=== PATIENT | female | born 1945 ===

== ENCOUNTER 2016-10-15 18:06 | Emergency (ER) | payer MEDICARE, SELFPAY ==
[2016-10-15 18:06] VITALS: BMI 36.3
[2016-10-15] MEDS ORDERED: Sodium Chloride 0.9% 1,000 ML IV ONE (19:06)
[2016-10-15 19:29] LABS: BASO # 0.1 K/uL (0.0-0.2); BASO % 0.6 % (0.0-2.0); EOS # 0.2 K/uL (0.0-0.7); EOS % 1.8 % (0.0-4.0); HEMATOCRIT 43.2 % (34.0-47.0); MEAN CELL VOLUME 86.9 fL (81.0-99.0); MEAN CORPUSCULAR HEMOGLOBIN 29.3 pg (27.0-31.0); MEAN CORPUSCULAR HGB CONC 33.8 g/dL (33.0-37.0); MEAN PLATELET VOLUME 10.5 fL (7.2-11.7); MONO # 0.8 K/uL (0.0-0.8); MONO % 7.1 % (0.0-10.0); NRBC % 0.1 % (0.0-2.0); RED CELL DISTRIBUTION WIDTH 14.1 % (11.5-14.5); WHITE BLOOD COUNT 11.1 K/uL (4.8-10.8)
[2016-10-15 19:32] LABS: URINE BILIRUBIN NEGATIVE (NEGATIVE); URINE BLOOD NEGATIVE (NEGATIVE); URINE COLOR Straw (YELLOW); URINE GLUCOSE (UA) NORMAL (Normal); URINE KETONE NEGATIVE (NEGATIVE); URINE LEUKOCYTE ESTERASE NEG Leu/uL (Negative); URINE PROTEIN NEGATIVE (NEGATIVE); URINE UROBILINOGEN NORMAL mg/dL (0.2-1.0); WBC URINE < 1 /hpf (0-5)
[2016-10-15] MEDS ORDERED: Sodium Chloride 0.9% 1,000 ML ONE (19:36)
[2016-10-15 19:40] LABS: CHLORIDE 98 mmol/L (98-107)
[2016-10-15 19:41] LABS: POTASSIUM 4.1 mmol/L (3.6-5.2); SODIUM 138 mmol/L (132-148)
[2016-10-15 19:43] LABS: ALB/GLOB RATIO 1.4 (1.0-2.1); ALKALINE PHOSPHATASE 81 U/L (38-126); ALT/SGPT 36 U/L (9-52); AST/SGOT 37 U/L (14-36); BILIRUBIN,TOTAL 0.6 mg/dL (0.2-1.3); BLOOD UREA NITROGEN 17 mg/dL (7-17); CARBON DIOXIDE 26 mmol/L (22-30); GFR AFRICAN-AMERICAN > 60; GLUCOSE,RANDOM 104 mg/dL (65-105); TOTAL PROTEIN 8.9 g/dL (6.3-8.3)
[2016-10-15 19:44] LABS: CALCIUM 9.2 mg/dl (8.6-10.4)
--- NOTE | 2016-10-15 20:36 | CT ---
EXAM: CT Abdomen and Pelvis Without Intravenous Contrast CLINICAL HISTORY: 71 years old, female; Pain; Abdominal pain; Flank; Right; Additional info: Right flank pain. H/o left kidney nephrectomy TECHNIQUE: Axial computed tomography images of the abdomen and pelvis without intravenous contrast. This CT exam was performed using one or more of the following dose reduction techniques: automated exposure control, adjustment of the mA and/or kV according to patient size, and/or use of iterative reconstruction technique. Coronal and sagittal reformatted images were created and reviewed. EXAM DATE/TIME: 10/15/2016 7:17 PM COMPARISON: CT - ABD PELVIS PO IV CONTRAST 09/15/2015 1:40:04 PM FINDINGS: Lower thorax: Heart size is normal. Lung bases are clear ABDOMEN: Liver: There is fatty infiltration of the liver. Gallbladder and bile ducts: unremarkable Pancreas: unremarkable Spleen: unremarkable Adrenals: unremarkable Kidneys and ureters: Right kidney and ureter are unremarkable. There are postsurgical changes left nephrectomy. Stomach and bowel: Stomach is partially distended. Rotation is normal. There is no obstruction. Terminal ileum is unremarkable.Appendix is unremarkable. Colon is incompletely distended which limits evaluation. There is scattered diverticulosis Appendix: See stomach and bowel PELVIS: Bladder: unremarkable Reproductive: Uterus and adnexal structures are unremarkable. ABDOMEN and PELVIS: Intraperitoneal space: There is no free air. There is no significant fluid. Retroperitoneal space: There are multiple surgical clips in the retroperitoneum. Bones/joints: There are degenerative changes in the osseus structures. Soft tissues: There is a fat-containing umbilical hernia. Vasculature: There are vascular calcifications. Lymph nodes: There is no pathologic adenopathy. IMPRESSION: Left nephrectomy; no right renal or ureteral stones or hydronephrosis; the liver; no CT findings of appendicitis or diverticulitis; fatty liver
--- NOTE | 2016-10-15 20:37 | C.PDOC ---
History Of Present Illness 71 year old female presents to the ED with complaints of intermittent and sharp right flank pain that began five days ago. Patient also notes mild left lumbar pain that is described similar to pain in the right flank. She has previously donated left kidney. Patient denies SOB, chest pain, nausea, or vomiting. Chief Complaint (Nursing): Back Pain History Per: Patient History/Exam Limitations: no limitations Onset/Duration Of Symptoms: Days, Intermittent Episodes Current Symptoms Are (Timing): Still Present Quality Of Discomfort: Sharp Previous Symptoms: Back Pain Past Medical History Reviewed: Historical Data, Nursing Documentation, Vital Signs Vital Signs: Last Vital Signs Temp 98.3 F 10/15/16 21:58 Pulse 69 10/15/16 21:58 Resp 18 10/15/16 21:58 BP 122/68 10/15/16 21:58 Pulse Ox 99 10/15/16 21:58 - Medical History PMH: HTN, Osteoporosis, Chronic Kidney Disease (Left Nephrectomy) Surgical History: Endoscopy, Tonsillectomy - [facility] Procedures ENDO RECTUM POLYPECTOMY (08/29/14) ESOPHAGOGASTRODUODENOSCOPY [EGD] W/CLOSED BIOPSY (10/03/14) PHARYNGEAL BIOPSY (06/10/14) Family History: States: Unknown Family Hx - Social History Hx Tobacco Use: No Hx Alcohol Use: No Hx Substance Use: No - Immunization History Hx Tetanus Toxoid Vaccination: Yes Hx Influenza Vaccination: Yes Hx Pneumococcal Vaccination: Yes Review Of Systems Constitutional: Negative for: Fever, Chills Cardiovascular: Negative for: Chest Pain Respiratory: Negative for: Shortness of Breath Gastrointestinal: Negative for: Nausea, Vomiting Genitourinary: Negative for: Dysuria, Hematuria Musculoskeletal: Positive for: Other (right flank pain) Physical Exam - Physical Exam Appears: Non-toxic, No Acute Distress Skin: Warm, Dry Chest: Symmetrical, No Deformity Cardiovascular: Rhythm Regular, No Murmur Respiratory: No Decreased Breath Sounds, No Accessory Muscle Use, No Rales, No Rhonchi, No Stridor, No Wheezing Gastrointestinal/Abdominal: Soft, No Tenderness, No Distention, No Guarding, No Rebound Back: No CVA Tenderness, Other (diffuse lumbar pain ) Extremity: Normal ROM, No Tenderness Neurological/Psych: Oriented x3 ED Course And Treatment - Laboratory Results Result Diagrams: 10/15/16 19:26 10/15/16 19:26 O2 Sat by Pulse Oximetry: 95 - CT Scan/US Abdomen/PELVIS WO Other Rad Studies (CT/US): Read By Radiologist, Radiology Report Reviewed CT/US Interpretation: IMPRESSION: Left nephrectomy; no right renal or ureteral stones or hydronephrosis; the liver; no CT. findings of appendicitis or diverticulitis; fatty liver Disposition - Disposition Referrals: [facility] Chirag Solorio, [Non-Staff] - Disposition: HOME/ ROUTINE Disposition Time: 20:40 Condition: GOOD Additional Instructions: Thank you for letting us take care of you today. Your provider was Dr. Pickering. You were treated for back pain. The emergency medical care you received today was directed at your acute symptoms. If you were prescribed any medication, please fill it and take as directed. It may take several days for your symptoms to resolve. Return to the Emergency Department if your symptoms worsen, do not improve, or if you have any other problems. Please contact your doctor or call one of the physicians/clinics you have been referred to that are listed on the Patient Visit Information form that is included in your discharge packet. Bring any paperwork you were given at discharge with you along with any medications you are taking to your follow up visit. Our treatment cannot replace ongoing medical care by a primary care provider (PCP) outside of the emergency department. Thank you for allowing the [facility] team to be part of your care today. Follow up with your doctor in 3-4 days to be re-evaluated. Prescriptions: Cyclobenzaprine [Cyclobenzaprine HCl] 10 mg PO Q8 PRN #20 tab PRN Reason: Muscle Spasm Instructions: Acute Low Back Pain (ED) - Clinical Impression Clinical Impression: acute low back pain - Scribe Statement Adrienne Villalba All medical record entries made by the Scribe were at my direction and personally dictated by me. I have reviewed the chart and agree that the record accurately reflects my personal performance of the history, physical exam, medical decision making, and the department course for this patient. I have also personally directed, reviewed, and agree with the discharge instructions and disposition.
[2016-10-15 22:02] VITALS: BP 122/68; PULSE 69; RESP 18; TEMP 98.3
[2016-10-15 23:25] VITALS: O2SAT 95
== END 2016-10-15 20:50 | disposition home or self-care (01) ==
LOC: C.ER 18:06
DX: M54.5 Low back pain (principal)
CPT/HCPCS: 36415; 74176; 80053; 81001; 83690; 85025; 87086; 99284; J7040

== ENCOUNTER 2016-11-17 18:09 | Observation (INO) | payer MEDICARE ==
[2016-11-17 18:09] VITALS: BMI 36.3
--- NOTE | 2016-11-17 19:25 | C.PDOC ---
History Of Present Illness Patient presents to the ER with a complaint of palpitations that have been worsening since yesterday. Patient states it feels like her heart is pounding. Patient is speaking in complete sentences and denies fever, chills, nausea, or vomiting. Time Seen by Provider: 11/17/16 19:25 Chief Complaint (Nursing): Palpitations History Per: Patient History/Exam Limitations: no limitations Onset/Duration Of Symptoms: Days (Since yesterday) Current Symptoms Are (Timing): Still Present Associated Symptoms: Other (No associated symptoms) Quality Of Symptoms: Rapid Heart Rate Severity: None Pain Scale Rating Of: 0 Exacerbating Factor(s): Pos: None Recent travel outside of the [place]: No Additional History Per: Patient Past Medical History Reviewed: Historical Data, Nursing Documentation, Vital Signs Vital Signs: Last Vital Signs Temp 98.3 F 11/17/16 18:41 Pulse 98 H 11/17/16 20:14 Resp 18 11/17/16 20:14 BP 125/86 11/17/16 20:14 Pulse Ox 99 11/17/16 22:22 - Medical History PMH: HTN, Osteoporosis, Chronic Kidney Disease (SEE COMMENT) Surgical History: Endoscopy, Tonsillectomy - [facility] Procedures ENDO RECTUM POLYPECTOMY (08/29/14) ESOPHAGOGASTRODUODENOSCOPY [EGD] W/CLOSED BIOPSY (10/03/14) PHARYNGEAL BIOPSY (06/10/14) Family History: States: No Known Family Hx - Social History Hx Tobacco Use: No Hx Alcohol Use: No Hx Substance Use: No - Immunization History Hx Tetanus Toxoid Vaccination: Yes Hx Influenza Vaccination: Yes (02/2016) Hx Pneumococcal Vaccination: Yes Review Of Systems Constitutional: Negative for: Fever, Chills ENT: Negative for: Throat Pain Cardiovascular: Positive for: Palpitations Respiratory: Positive for: Other (Speaking in complete sentences). Negative for : Shortness of Breath Gastrointestinal: Negative for: Nausea, Vomiting Genitourinary: Negative for: Dysuria Musculoskeletal: Negative for: Back Pain Skin: Negative for: Rash, Lesions, Jaundice, Bruising Neurological: Negative for: Weakness Psych: Negative for: Anxiety Physical Exam - Physical Exam Appears: Well, Non-toxic Skin: Warm, Dry Head: Normacephalic Eye(s): bilateral: Normal Inspection Oral Mucosa: Moist Neck: Supple Chest: Symmetrical, No Tenderness Cardiovascular: Rhythm Regular (Tachycardic) Respiratory: No Rales, No Rhonchi, No Wheezing Gastrointestinal/Abdominal: Soft, No Tenderness Back: No CVA Tenderness Extremity: Normal ROM Extremity: Bilateral: Atraumatic, Normal Color And Temperature Neurological/Psych: Oriented x3, Normal Speech, Normal Cognition Gait: Steady ED Course And Treatment - Laboratory Results Result Diagrams: 11/17/16 19:40 11/17/16 19:40 ECG: Interpreted By Me ECG Rhythm: Sinus Tachycardia (130), Nonspecific Changes (lvh) O2 Sat by Pulse Oximetry: 99 Pulse Ox Interpretation: Normal - Radiology CXR: Interpreted by Me, Viewed By Me - CT Scan/US CTA w/ IV contrast Other Rad Studies (CT/US): Read By Radiologist, Radiology Report Reviewed CT/US Interpretation: IMPRESSION: 1. No CT evidence of pulmonary embolism. 2. Incidental/non-acute findings are described above. Progress Note: EKG, blood work, urinalysis and CXR ordered. Disposition Discussed With DrMelonie: Izaiah Davis Comment: accepted the pt on his service and took over the care at 9:34 PM Doctor Will See Patient In The: Hospital Counseled Patient/Family Regarding: Studies Performed, Diagnosis - Disposition Disposition: HOSPITALIZED Disposition Time: 19:25 Condition: FAIR - POA Present On Arrival: Poor Glycemic Control - Clinical Impression Clinical Impression: Palpitations, SVT (supraventricular tachycardia) - Scribe Statement The provider has reviewed the documentation as recorded by the Scribe Sanjiv Sood All medical record entries made by the Scribe were at my direction and personally dictated by me. I have reviewed the chart and agree that the record accurately reflects my personal performance of the history, physical exam, medical decision making, and the department course for this patient. I have also personally directed, reviewed, and agree with the discharge instructions and disposition. Decision To Admit - Pt Status Changed To: Hospital Disposition Of: Observation - . Bed Request Type: Telemetry Patient Diagnosis: Palpitations, SVT (supraventricular tachycardia)
[2016-11-17] MEDS ORDERED: Enoxaparin 40 mg Syringe SC STA (19:36)
[2016-11-17 19:44] LABS: BASO % 0.4 % (0.0-2.0); EOS # 0.2 K/uL (0.0-0.7); EOS % 1.4 % (0.0-4.0); HEMATOCRIT 44.8 % (34.0-47.0); LYMPH # 3.4 K/uL (1.0-4.3); LYMPH % 26.5 % (20.0-40.0); MEAN CELL VOLUME 85.8 fL (81.0-99.0); MEAN CORPUSCULAR HEMOGLOBIN 29.4 pg (27.0-31.0); MEAN CORPUSCULAR HGB CONC 34.2 g/dL (33.0-37.0); MEAN PLATELET VOLUME 9.7 fL (7.2-11.7); MONO # 0.9 K/uL (0.0-0.8); MONO % 6.7 % (0.0-10.0); RED CELL DISTRIBUTION WIDTH 13.6 % (11.5-14.5); WHITE BLOOD COUNT 12.8 K/uL (4.8-10.8)
[2016-11-17 19:47] LABS: RBC URINE < 1 /hpf (0-3); URINE BILIRUBIN NEGATIVE (NEGATIVE); URINE BLOOD NEGATIVE (NEGATIVE); URINE COLOR Yellow (YELLOW); URINE GLUCOSE (UA) NORMAL (Normal); URINE KETONE NEGATIVE (NEGATIVE); URINE LEUKOCYTE ESTERASE TRACE Leu/uL (Negative); URINE PROTEIN NEGATIVE (NEGATIVE); URINE UROBILINOGEN NORMAL mg/dL (0.2-1.0)
[2016-11-17 19:48] LABS: URINE BACTERIA OCC (<OCC); WBC URINE 4 /hpf (0-5)
[2016-11-17 19:52] LABS: CHLORIDE 89 mmol/L (98-107); INR 1.1; PARTIAL THROMBOPLASTIN TIME 38 SECONDS (21-34); POTASSIUM 3.7 mmol/L (3.6-5.2); SODIUM 134 mmol/L (132-148)
[2016-11-17 19:54] LABS: AST/SGOT 41 U/L (14-36); BILIRUBIN,TOTAL 0.7 mg/dL (0.2-1.3); CARBON DIOXIDE 30 mmol/L (22-30); GFR AFRICAN-AMERICAN > 60
[2016-11-17 19:55] LABS: ALB/GLOB RATIO 1.2 (1.0-2.1); ALKALINE PHOSPHATASE 85 U/L (38-126); ALT/SGPT 39 U/L (9-52); BLOOD UREA NITROGEN 13 mg/dL (7-17); CALCIUM 9.4 mg/dl (8.6-10.4); GLUCOSE,RANDOM 213 mg/dL (65-105); TOTAL PROTEIN 8.5 g/dL (6.3-8.3)
[2016-11-17] MEDS ORDERED: Enoxaparin 40 mg Syringe ONE (20:10)
[2016-11-17 20:26] LABS: THYROID STIMULATING HORMONE 1.95 mIU/L (0.46-4.68)
[2016-11-17] MEDS ORDERED: Iodixanol 320 mg/ml 150 ml Bottle IV ONE (21:45)
--- NOTE | 2016-11-17 22:19 | CT ---
EXAM: CT Angiography Chest With Intravenous Contrast CLINICAL HISTORY: 71 years old, female; Condition or disease; Cardiac pacemaker adjustment and management and lung condition and disease; Other: R/O clot; Additional info: Tachy, dyspnea TECHNIQUE: Axial computed tomographic angiography images of the chest with intravenous contrast using pulmonary embolism protocol. This CT exam was performed using one or more of the following dose reduction techniques: automated exposure control, adjustment of the mA and/or kV according to patient size, and/or use of iterative reconstruction technique. MIP reconstructed images were created and reviewed. Coronal and sagittal reformatted images were created and reviewed. CONTRAST: 100 mL of visipaque 320 administered intravenously. COMPARISON: CR - CHEST ONE VIEW 08/08/2015 7:53:42 PM FINDINGS: Pulmonary arteries: No pulmonary embolism. Aorta: Minimal atherosclerotic disease. No aneurysm. Lungs: No consolidation. Pleural space: No significant effusion. No pneumothorax. Heart: No cardiomegaly. No significant pericardial effusion. Bones/joints: Mild degenerative changes of spine. No acute fracture. Soft tissues: Unremarkable. Lymph nodes: No pathologically enlarged lymph nodes. Liver: Fatty infiltration. IMPRESSION: 1. No CT evidence of pulmonary embolism. 2. Incidental/non-acute findings are described above.
--- NOTE | 2016-11-18 02:25 | CP.PCM.HP ---
<Jaime Doty - Last Filed: 11/18/16 07:47> History of Present Illness - History of Present Illness History of Present Illness: CC: "Fast heart beat and chest pain" 71 F with PMH of HTN presents to [facility] ED for chest pain and tachycardia. Patient stated it began same day in the morning while she was at home. She was not doing anything in particular when onset occurred. Patient stated that she never experienced these symptoms before. Patient was seeing Dr. Isaac as outpatient for about past month but is looking for a new physician. She previosuly saw Dr. Martin but her office was too far for patient. Patient had stress test and ECHO done in 10/23 and stated both were normal. Patient rated pain as 10/10 in severity. She described the pain as constant, sharp, and cramping. She stated that pain is reproducible. She reports a "lump" under her left breast. She denies any alleviating factors while palpation exacerbates her pain. Admits to palpitations but denies fever/chills, syncope, dizziness/lightheadedness, trauma, sob, abd pain, n/v/d, constipation, incontinence. PMD: Dr. Isaac PMH: HTN Meds: HCTZ 25 mg PO daily, Ambien 5 mg PO HS Allergy: ASA PSH: denies Hosp: denies FH: DM, CAD, HTN Social: denies tobacco/etoh/illicit drug use Present on Admission - Present on Admission Any Indicators Present on Admission: No History of DVT/PE: No History of Uncontrolled Diabetes: No Urinary Catheter: No Decubitus Ulcer Present: No Review of Systems - Constitutional Constitutional: absent: Chills, Fever - EENT Eyes: absent: Blurred Vision, Change in Vision, Loss of Peripheral Vision Ears: absent: Decreased Hearing, Ear Discharge, Disequilibrium Nose/Mouth/Throat: absent: Mouth Pain - Breasts Breasts: absent: Change in Shape, Mass, Pain - Cardiovascular Cardiovascular: Chest Pain, Palpitations. absent: Chest Pain at Rest, Chest Pain with Activity, Diaphoresis, Dyspnea, Dyspnea on Exertion - Respiratory Respiratory: absent: Cough, Dyspnea, Hemoptysis, Dyspnea on Exertion - Gastrointestinal Gastrointestinal: absent: Abdominal Pain, Constipation, Diarrhea, Fecal Incontinence, Nausea, Vomiting - Genitourinary Genitourinary: absent: Change in Urinary Stream, Difficulty Urinating, Dysuria, Hematuria, Urinary Incontinence - Musculoskeletal Musculoskeletal: Arthralgias, Muscle Cramps, Myalgias. absent: Back Pain - Integumentary Integumentary: absent: Bleeding Lesions, Changing Lesions, Lesions, New Lesions , Rash - Neurological Neurological: absent: Confusion, Dizziness, Numbness, Focal Weakness, Headaches , Paresthesias, Syncope, Tingling, Tremor, Vertigo, Weakness - Psychiatric Psychiatric: absent: Anxiety, Depression, Homicidal Ideation, Panic Attacks, Suicidal Ideation - Endocrine Endocrine: absent: Fatigue, Palpitations, Polydipsia, Polyphagia, Polyuria - Hematologic/Lymphatic Hematologic: absent: Easy Bleeding, Easy Bruising, Lymphadenopathy Past Patient History - Past Medical History & Family History Past Medical History?: Yes - Past Social History Smoking Status: Former Smoker - CARDIAC Hx Hypertension: Yes - PULMONARY Hx Respiratory Disorders: No - NEUROLOGICAL Hx Neurological Disorder: No - HEENT Hx HEENT Problems: Yes (SEE COMMENT) Other/Comment: hx of pharyngitis; TONSILLECTOMY. HX: PRYIFORM SINUS LESION. difficulty swallowing - RENAL Hx Chronic Kidney Disease: Yes (SEE COMMENT) - ENDOCRINE/METABOLIC Hx Endocrine Disorders: No Other/Comment: Pre diabetic doesnt take medications - HEMATOLOGICAL/ONCOLOGICAL Hx Blood Disorders: No - INTEGUMENTARY Hx Dermatological Problems: No - MUSCULOSKELETAL/RHEUMATOLOGICAL Hx Osteoporosis: Yes - GASTROINTESTINAL Hx Gastrointestinal Disorders: Yes Hx Gastroesophageal Reflux: Yes - GENITOURINARY/GYNECOLOGICAL Hx Genitourinary Disorders: No - PSYCHIATRIC Hx Substance Use: No - SURGICAL HISTORY Hx Tonsillectomy: Yes - ANESTHESIA Hx Anesthesia: Yes Hx Anesthesia Reactions: No Hx Malignant Hyperthermia: No Meds Allergies/Adverse Reactions: Allergies Allergy/AdvReac Type Severity Reaction Status Date / Time aspirin Allergy Intermediate SWELLING Verified 11/17/16 18:59 Physical Exam - Constitutional Appears: No Acute Distress - Head Exam Head Exam: ATRAUMATIC, NORMOCEPHALIC - Eye Exam Eye Exam: EOMI, Normal appearance Pupil Exam: PERRL - ENT Exam ENT Exam: Mucous Membranes Moist - Neck Exam Neck exam: Positive for: Normal Inspection - Respiratory Exam Respiratory Exam: Chest Wall Tenderness, Clear to Auscultation Bilateral, NORMAL BREATHING PATTERN Additional comments: Muscle spasm over anterior chest wall near ribs 5-6, TTP - Cardiovascular Exam Cardiovascular Exam: Tachycardia, Irregular Rhythm, +S1, +S2 - GI/Abdominal Exam GI & Abdominal Exam: Normal Bowel Sounds, Soft. absent: Tenderness - Rectal Exam Rectal Exam: Deferred - Extremities Exam Extremities exam: Positive for: normal capillary refill, pedal pulses present. Negative for: calf tenderness, pedal edema - Back Exam Back exam: absent: CVA tenderness (L), CVA tenderness (R) - Neurological Exam Neurological exam: Alert, CN II-XII Intact, Oriented x3 - Psychiatric Exam Psychiatric exam: Normal Affect, Normal Mood - Skin Skin Exam: Dry, Intact, Normal Color, Warm Results - Vital Signs Recent Vital Signs: Last Vital Signs Temp 98 F 11/18/16 00:40 Pulse 92 H 11/18/16 02:18 Resp 20 11/18/16 02:18 BP 114/71 11/18/16 00:40 Pulse Ox 96 11/18/16 02:18 - Labs Result Diagrams: 11/18/16 04:30 11/18/16 04:30 Assessment & Plan - Assessment and Plan (Free Text) Plan: 1. Tachycardia Telemetry Cardio consult, Dr. Morillo, help appreciated ECHO (11/01): normal EF with some diastolic dysfunction, borderline Pulm HTN CT chest: no evidence of PE, incidental findings noted (see full report) CXR EKG and POPEYE x 3 HA1C, TSH/T4, Lipid panel HHD 2. Chest wall tenderness likely secondary to muscle spasm Flexeril 5 mg PO BID Percoet 5/325 1 tab Q4H PRN 3. HTN HCTZ 25 mg PO daily 4. Insomnia Ambien 5 mg PO HS PRN 5. Prophylactic Measures Lovenox 40 mg SC daily Protonix 40 mg PO daily <Floyd Duffy - Last Filed: 11/18/16 19:12> Results - Vital Signs Recent Vital Signs: Last Vital Signs Temp 97.7 F 11/18/16 16:00 Pulse 79 11/18/16 16:00 Resp 17 11/18/16 16:00 BP 139/82 11/18/16 16:00 Pulse Ox 96 11/18/16 16:00 - Labs Result Diagrams: 11/18/16 04:30 11/18/16 04:30 Labs: Laboratory Results - last 24 hr 11/18/16 11/18/16 11/18/16 04:30 04:30 04:30 WBC 12.9 H RBC 5.18 Hgb 15.3 Hct 44.2 MCV 85.3 MCH 29.5 MCHC 34.6 RDW 13.8 Plt Count 259 MPV 9.9 Neut % (Auto) 56.1 Lymph % (Auto) 35.0 Garrett % (Auto) 6.9 Eos % (Auto) 1.5 Baso % (Auto) 0.5 Neut # 7.2 H Lymph # 4.5 H Garrett # 0.9 H Eos # 0.2 Baso # 0.1 PT INR APTT Sodium Potassium Chloride Carbon Dioxide Anion Gap BUN Creatinine Est GFR ( Amer) Est GFR (Non-Af Amer) POC Glucose (mg/dL) Random Glucose Hemoglobin A1c 6.0 Calcium Magnesium Total Bilirubin AST ALT Alkaline Phosphatase Total Creatine Kinase 64 CK-MB (Mass) 0.54 Troponin I, Quant < 0.0120 Total Protein Albumin Globulin Albumin/Globulin Ratio Triglycerides 163 H D Cholesterol 197 LDL Cholesterol Direct 111 HDL Cholesterol 58 Thyroxine (T4) 8.51 TSH 3rd Generation 4.06 11/18/16 11/18/16 11/18/16 04:30 04:30 07:29 WBC RBC Hgb Hct MCV MCH MCHC RDW Plt Count MPV Neut % (Auto) Lymph % (Auto) Garrett % (Auto) Eos % (Auto) Baso % (Auto) Neut # Lymph # Garrett # Eos # Baso # PT 13.0 H INR 1.2 APTT 50 H D Sodium 133 Potassium 3.2 L Chloride 93 L Carbon Dioxide 28 Anion Gap 15 BUN 12 Creatinine 0.9 Est GFR ( Amer) > 60 Est GFR (Non-Af Amer) > 60 POC Glucose (mg/dL) 136 H Random Glucose 125 H Hemoglobin A1c Calcium 9.2 Magnesium Total Bilirubin 0.6 AST 36 ALT 46 Alkaline Phosphatase 97 Total Creatine Kinase CK-MB (Mass) Troponin I, Quant Total Protein 8.5 H Albumin 5.2 H Globulin 3.3 Albumin/Globulin Ratio 1.6 Triglycerides Cholesterol LDL Cholesterol Direct HDL Cholesterol Thyroxine (T4) TSH 3rd Generation 11/18/16 11/18/16 11/18/16 08:11 12:24 16:55 WBC RBC Hgb Hct MCV MCH MCHC RDW Plt Count MPV Neut % (Auto) Lymph % (Auto) Garrett % (Auto) Eos % (Auto) Baso % (Auto) Neut # Lymph # Garrett # Eos # Baso # PT INR APTT Sodium Potassium Chloride Carbon Dioxide Anion Gap BUN Creatinine Est GFR ( Amer) Est GFR (Non-Af Amer) POC Glucose (mg/dL) 100 140 H Random Glucose Hemoglobin A1c Calcium Magnesium 1.8 Total Bilirubin AST ALT Alkaline Phosphatase Total Creatine Kinase 54 CK-MB (Mass) 0.45 Troponin I, Quant < 0.0120 Total Protein Albumin Globulin Albumin/Globulin Ratio Triglycerides Cholesterol LDL Cholesterol Direct HDL Cholesterol Thyroxine (T4) TSH 3rd Generation Assessment & Plan - Date & Time Date: 11/18/16 (I have seen and examined the patient. I agree with the findings and plan of care as documented by Dr. Doty. Patient with tachycardia. Now with chest pain. ROMIx3 with EKG. Aspirin and Statin. Received Cardizem in ED. Rate improved. Cardio consult. Monitor for acute changes.) Time: 19:12 Attending/Attestation - Attestation I have personally seen and examined this patient.: Yes I have fully participated in the care of the patient.: Yes I have reviewed all pertinent clinical information: Yes
[2016-11-18] MEDS ORDERED: Oxycodone/Acetaminophen 5/325 mg Tab PO PRN (02:27)
[2016-11-18] MEDS ORDERED: Sodium Chloride 0.9% 1,000 ML IV SCH (02:45)
[2016-11-18] MEDS: Sodium Chloride 0.9% 1,000 ML IV SCH ×2 (03:30→17:53)
[2016-11-18 04:38] LABS: BASO # 0.1 K/uL (0.0-0.2); BASO % 0.5 % (0.0-2.0); EOS # 0.2 K/uL (0.0-0.7); EOS % 1.5 % (0.0-4.0); HEMATOCRIT 44.2 % (34.0-47.0); LYMPH # 4.5 K/uL (1.0-4.3); MEAN CELL VOLUME 85.3 fL (81.0-99.0); MEAN CORPUSCULAR HEMOGLOBIN 29.5 pg (27.0-31.0); MEAN CORPUSCULAR HGB CONC 34.6 g/dL (33.0-37.0); MEAN PLATELET VOLUME 9.9 fL (7.2-11.7); MONO # 0.9 K/uL (0.0-0.8); MONO % 6.9 % (0.0-10.0); NRBC % 0.1 % (0.0-2.0); RED CELL DISTRIBUTION WIDTH 13.8 % (11.5-14.5); WHITE BLOOD COUNT 12.9 K/uL (4.8-10.8)
[2016-11-18 04:47] LABS: CHLORIDE 93 mmol/L (98-107)
[2016-11-18 04:48] LABS: SODIUM 133 mmol/L (132-148)
[2016-11-18 04:49] LABS: POTASSIUM 3.2 mmol/L (3.6-5.2)
[2016-11-18 04:50] LABS: CHOLESTEROL 197 mg/dL (0-199)
[2016-11-18 04:51] LABS: ALKALINE PHOSPHATASE 97 U/L (38-126); ALT/SGPT 46 U/L (9-52); AST/SGOT 36 U/L (14-36); BILIRUBIN,TOTAL 0.6 mg/dL (0.2-1.3); BLOOD UREA NITROGEN 12 mg/dL (7-17); CARBON DIOXIDE 28 mmol/L (22-30); GFR AFRICAN-AMERICAN > 60; GLUCOSE,RANDOM 125 mg/dL (65-105); TOTAL PROTEIN 8.5 g/dL (6.3-8.3)
[2016-11-18 04:52] LABS: CALCIUM 9.2 mg/dl (8.6-10.4)
[2016-11-18 04:55] LABS: ALB/GLOB RATIO 1.6 (1.0-2.1)
[2016-11-18 04:56] LABS: INR 1.2
[2016-11-18 05:09] LABS: T4 8.51 ug/dL (5.5-11.0)
[2016-11-18 05:23] LABS: THYROID STIMULATING HORMONE 4.06 mIU/L (0.46-4.68)
--- NOTE | 2016-11-18 07:33 | RAD ---
PROCEDURE: CHEST RADIOGRAPH, 1 VIEW HISTORY: chest pain COMPARISON: Comparison is made to 08/08/2015 FINDINGS: LUNGS: Clear. PLEURA: No pneumothorax or pleural fluid seen. CARDIOVASCULAR: Normal. OSSEOUS STRUCTURES: No significant abnormalities. VISUALIZED UPPER ABDOMEN: Normal. OTHER FINDINGS: None. IMPRESSION: No active disease.
[2016-11-18] MEDS ORDERED: Potassium Chloride 20 mEq ER Tab PO ONE ×2 (07:48→12:00)
[2016-11-18 08:28] LABS: MAGNESIUM 1.8 mg/dL (1.6-2.3)
[2016-11-18] MEDS ORDERED: Enoxaparin 40 mg Syringe SC SCH (10:00)
[2016-11-18] MEDS ORDERED: Pantoprazole 40 mg EC Tab PO SCH (10:00)
--- NOTE | 2016-11-18 10:00 | CP.PCM.CON ---
<Coty Wright - Last Filed: 11/18/16 11:21> History of Present Illness - History of Present Illness History of Present Illness: Cardiac Consultation Note Dr. Dias Reason: Tachycardia HPI: This is 71 year old female with a PMHx of HTN, donation of 1 kidney, GERD being seen for cardiac evaluation of sinus tachycardia. Patient came to the ED last night, 11/17/16, on her own after experiencing heart palpitations, which began Monday night. Patient states that the palpitations have been constant since, and that nothing makes it better or worse. This is the first time this has happened. Patient saw her primary doctor, Dr. Davis, last on Monday11/15/16 , and states "everything was fine". Patient states that she had a nuclear stress test done on 12/01/16, and results came back normal. Admits to LUQ pain that seems to radiate to sternum when patient is asked to point. However, pain has not occurred since stress test was done. Patient admits to recent SOB while walking up hills. She is able to lay flat at night, and walk many blocks at a time. She is not able to specify how many flights of stairs she can climb, because she states she only uses the elevator. Patient denies any current fevers , chills, chest pain, SOB, numbness or tingling, changes in vision, diaphoresis , weakness, headaches. PMHx: HTN,donation of 1 kidney, GERD. Questionable history of DM as per chart, however, patient denies. FHx: Father from CAD, and mother of dementia. Both siblings, brother and sister, have HTN Allergies: Dust and pollen, patient experiences lacrimation when exposed Surgeries: Left nephrectomy to donate to son in 2004, tonsillectomy in 2016, and b/l axillary lumpectomy Social: Patient is a who lives at home by herself, retired warehouse attendant, and denies any use of drugs, tobacco, and alcohol. Troponins: <0.0120 X 3. EKG done this AM (11/18/16) shows NSR 84 bpm. EKG done overnight (11/18/16) shows NSR 86 bpm. EKG on admission (11/17/16) showed sinus tachycardia 130 bpm, LVH and possible atrial enlargement. EKG shows possible atrial tachycardia. ECHO (11/01/16) showed EF 65-70%. Diastolic dysfunction. Moderate calcification on aortic valve (doubt vegetation). Mild TR, borderline pulm HTN. Nuclear Stress Test (11/01/16) was normal. Review of Systems - Constitutional Constitutional: absent: Chills, Fever - EENT Eyes: absent: Blurred Vision, Change in Vision Ears: absent: Dizziness - Cardiovascular Cardiovascular: Palpitations. absent: Chest Pain, Dyspnea - Respiratory Respiratory: absent: Cough, Dyspnea - Gastrointestinal Gastrointestinal: absent: Abdominal Pain, Constipation, Diarrhea, Nausea, Vomiting - Genitourinary Genitourinary: absent: Change in Urinary Stream, Difficulty Urinating, Dysuria - Musculoskeletal Musculoskeletal: absent: Numbness, Tingling - Integumentary Integumentary: absent: Wounds - Neurological Neurological: absent: Dizziness, Numbness, Tingling, Weakness - Psychiatric Psychiatric: absent: Anxiety, Depression - Endocrine Endocrine: Palpitations. absent: Fatigue Past Patient History - Past Medical History & Family History Past Medical History?: Yes - Past Social History Smoking Status: Former Smoker - CARDIAC Hx Hypertension: Yes - PULMONARY Hx Respiratory Disorders: No - NEUROLOGICAL Hx Neurological Disorder: No - HEENT Hx HEENT Problems: Yes (SEE COMMENT) Other/Comment: hx of pharyngitis; TONSILLECTOMY. HX: PRYIFORM SINUS LESION. difficulty swallowing - RENAL Hx Chronic Kidney Disease: Yes (SEE COMMENT) - ENDOCRINE/METABOLIC Hx Endocrine Disorders: No Other/Comment: Pre diabetic doesnt take medications - HEMATOLOGICAL/ONCOLOGICAL Hx Blood Disorders: No - INTEGUMENTARY Hx Dermatological Problems: No - MUSCULOSKELETAL/RHEUMATOLOGICAL Hx Osteoporosis: Yes - GASTROINTESTINAL Hx Gastrointestinal Disorders: Yes Hx Gastroesophageal Reflux: Yes - GENITOURINARY/GYNECOLOGICAL Hx Genitourinary Disorders: No - PSYCHIATRIC Hx Substance Use: No - SURGICAL HISTORY Hx Tonsillectomy: Yes - ANESTHESIA Hx Anesthesia: Yes Hx Anesthesia Reactions: No Hx Malignant Hyperthermia: No Meds Home Medications: Home Medication List Medication Instructions Recorded Confirmed Type Cyclobenzaprine [Flexeril] 5 mg PO BID tab 11/19/16 Rx Lisinopril [Zestril] 2.5 mg PO DAILY #30 tab 11/19/16 Rx diltiaZEM CD [Cardizem CD] 240 mg PO DAILY #30 c24 11/19/16 Rx Allergies/Adverse Reactions: Allergies Allergy/AdvReac Type Severity Reaction Status Date / Time aspirin Allergy Intermediate SWELLING Verified 11/20/16 00:41 - Medications Medications: Current Medications Cyclobenzaprine HCl (Flexeril) 5 mg PO BID [facility] Last Admin: 11/18/16 09:48 Dose: Not Given Enoxaparin Sodium (Lovenox) 40 mg SC DAILY [facility] Last Admin: 11/18/16 09:44 Dose: 40 mg Hydrochlorothiazide (Hydrodiuril) 25 mg PO DAILY [facility] Last Admin: 11/18/16 09:44 Dose: 25 mg Sodium Chloride (Sodium Chloride 0.9%) 1,000 mls @ 70 mls/hr IV .[id number] [facility] Last Admin: 11/18/16 03:30 Dose: 70 mls/hr Ondansetron HCl (Zofran Inj) 4 mg IVP Q6 PRN PRN Reason: Nausea/Vomiting Oxycodone/Acetaminophen (Percocet 5/325 Mg Tab) 1 tab PO Q4H PRN PRN Reason: Pain, severe (8-10) Stop: 11/21/16 02:28 Pantoprazole Sodium (Protonix Ec Tab) 40 mg PO DAILY [facility] Last Admin: 11/18/16 09:44 Dose: 40 mg Potassium Chloride (K-Dur 20 Meq Er Tab) 40 meq PO ONCE ONE Stop: 11/18/16 12:01 Zolpidem Tartrate (Ambien) 5 mg PO HS PRN PRN Reason: Insomnia Physical Exam - Constitutional Appears: No Acute Distress - Head Exam Head Exam: NORMAL INSPECTION, NORMOCEPHALIC - Eye Exam Eye Exam: EOMI, Normal appearance Pupil Exam: NORMAL ACCOMODATION - ENT Exam ENT Exam: Mucous Membranes Moist - Neck Exam Neck exam: Positive for: Full Rom - Respiratory Exam Respiratory Exam: Clear to Auscultation Bilateral, NORMAL BREATHING PATTERN - Cardiovascular Exam Cardiovascular Exam: REGULAR RHYTHM, +S1, +S2 - GI/Abdominal Exam GI & Abdominal Exam: Normal Bowel Sounds, Soft. absent: Tenderness - Extremities Exam Extremities exam: Positive for: normal inspection, pedal edema. Negative for: tenderness - Back Exam Back exam: NORMAL INSPECTION - Neurological Exam Neurological exam: Alert, Oriented x3 - Psychiatric Exam Psychiatric exam: Normal Affect, Normal Mood - Skin Skin Exam: Dry, Normal Color, Warm Results - Vital Signs Recent Vital Signs: Last Vital Signs Temp 98 F 11/18/16 08:00 Pulse 81 11/18/16 08:00 Resp 18 11/18/16 08:00 BP 134/80 11/18/16 08:00 Pulse Ox 96 11/18/16 08:00 - Labs Result Diagrams: 11/18/16 04:30 11/18/16 04:30 Labs: Laboratory Results - last 24 hr 11/18/16 11/18/16 11/18/16 04:30 04:30 04:30 WBC 12.9 H RBC 5.18 Hgb 15.3 Hct 44.2 MCV 85.3 MCH 29.5 MCHC 34.6 RDW 13.8 Plt Count 259 MPV 9.9 Neut % (Auto) 56.1 Lymph % (Auto) 35.0 Scurry % (Auto) 6.9 Eos % (Auto) 1.5 Baso % (Auto) 0.5 Neut # 7.2 H Lymph # 4.5 H Scurry # 0.9 H Eos # 0.2 Baso # 0.1 PT INR APTT Sodium Potassium Chloride Carbon Dioxide Anion Gap BUN Creatinine Est GFR ( Amer) Est GFR (Non-Af Amer) POC Glucose (mg/dL) Random Glucose Hemoglobin A1c 6.0 Calcium Magnesium Total Bilirubin AST ALT Alkaline Phosphatase Total Creatine Kinase 64 CK-MB (Mass) 0.54 Troponin I, Quant < 0.0120 Total Protein Albumin Globulin Albumin/Globulin Ratio Triglycerides 163 H D Cholesterol 197 LDL Cholesterol Direct 111 HDL Cholesterol 58 Thyroxine (T4) 8.51 TSH 3rd Generation 4.06 11/18/16 11/18/16 11/18/16 04:30 04:30 07:29 WBC RBC Hgb Hct MCV MCH MCHC RDW Plt Count MPV Neut % (Auto) Lymph % (Auto) Scurry % (Auto) Eos % (Auto) Baso % (Auto) Neut # Lymph # Scurry # Eos # Baso # PT 13.0 H INR 1.2 APTT 50 H D Sodium 133 Potassium 3.2 L Chloride 93 L Carbon Dioxide 28 Anion Gap 15 BUN 12 Creatinine 0.9 Est GFR ( Amer) > 60 Est GFR (Non-Af Amer) > 60 POC Glucose (mg/dL) 136 H Random Glucose 125 H Hemoglobin A1c Calcium 9.2 Magnesium Total Bilirubin 0.6 AST 36 ALT 46 Alkaline Phosphatase 97 Total Creatine Kinase CK-MB (Mass) Troponin I, Quant Total Protein 8.5 H Albumin 5.2 H Globulin 3.3 Albumin/Globulin Ratio 1.6 Triglycerides Cholesterol LDL Cholesterol Direct HDL Cholesterol Thyroxine (T4) TSH 3rd Generation 11/18/16 08:11 WBC RBC Hgb Hct MCV MCH MCHC RDW Plt Count MPV Neut % (Auto) Lymph % (Auto) Scurry % (Auto) Eos % (Auto) Baso % (Auto) Neut # Lymph # Scurry # Eos # Baso # PT INR APTT Sodium Potassium Chloride Carbon Dioxide Anion Gap BUN Creatinine Est GFR ( Amer) Est GFR (Non-Af Amer) POC Glucose (mg/dL) Random Glucose Hemoglobin A1c Calcium Magnesium 1.8 Total Bilirubin AST ALT Alkaline Phosphatase Total Creatine Kinase 54 CK-MB (Mass) 0.45 Troponin I, Quant < 0.0120 Total Protein Albumin Globulin Albumin/Globulin Ratio Triglycerides Cholesterol LDL Cholesterol Direct HDL Cholesterol Thyroxine (T4) TSH 3rd Generation Assessment & Plan (1) Tachycardia Assessment and Plan: Patient with atrial tachycardia. SVT vs A.fibrillation. Patient's HR this Am in upper 90's. As per patient history, she does not tolerate beta blockers. Will start Cardizem 30 mg PO Q8H. Continue home medication HCTZ 25mg PO daily Potassium 3.2 this AM. Replace as needed. Thyroid panel WNL. Troponins: <0.0120 X 3. EKG done this AM (11/18/16) shows NSR 84 bpm. EKG done overnight (11/18/16) shows NSR 86 bpm. EKG on admission (11/17/16) showed sinus tachycardia 130 bpm, LVH and possible atrial enlargement. EKG shows possible atrial tachycardia. ECHO (11/01/16) showed EF 65-70%. Diastolic dysfunction. Moderate calcification on aortic valve (doubt vegetation). Mild TR, borderline pulm HTN. Nuclear Stress Test (11/01/16) was normal. Status: Acute (2) Hx of chest pain Assessment and Plan: Resolved since stress test in October. Troponins: <0.0120 X 3. EKG done this AM (11/18/16) shows NSR 84 bpm. EKG done overnight (11/18/16) shows NSR 86 bpm. EKG on admission (11/17/16) showed sinus tachycardia 130 bpm, LVH and possible atrial enlargement. EKG shows possible atrial tachycardia. ECHO (11/01/16) showed EF 65-70%. Diastolic dysfunction. Moderate calcification on aortic valve (doubt vegetation). Mild TR, borderline pulm HTN. Nuclear Stress Test (11/01/16) was normal. Status: Resolved (3) HTN (hypertension) Assessment and Plan: HCTZ 25 mg PO daily Monitor BP. Status: Acute - Assessment and Plan (Free Text) Assessment: Discussed with Dr. Dias. Seen with Brittany Wright DO- PGY 2 <Kelsey Dias A - Last Filed: 11/23/16 12:33> Meds - Medications Medications: Current Medications Cyclobenzaprine HCl (Flexeril) 5 mg PO BID [facility] Last Admin: 11/18/16 17:02 Dose: 5 mg Diltiazem HCl (Cardizem Cd) 240 mg PO DAILY [facility] Enoxaparin Sodium (Lovenox) 40 mg SC DAILY [facility] Last Admin: 11/18/16 09:44 Dose: 40 mg Hydrochlorothiazide (Hydrodiuril) 25 mg PO DAILY [facility] Last Admin: 11/18/16 09:44 Dose: 25 mg Lisinopril (Zestril) 2.5 mg PO DAILY [facility] Oxycodone/Acetaminophen (Percocet 5/325 Mg Tab) 1 tab PO Q4H PRN PRN Reason: Pain, severe (8-10) Stop: 11/21/16 02:28 Pantoprazole Sodium (Protonix Ec Tab) 40 mg PO DAILY [facility] Last Admin: 11/18/16 09:44 Dose: 40 mg Zolpidem Tartrate (Ambien) 5 mg PO HS PRN PRN Reason: Insomnia Last Admin: 11/19/16 03:13 Dose: 5 mg Results - Vital Signs Recent Vital Signs: Last Vital Signs Temp 97.5 F L 11/19/16 00:00 Pulse 68 11/19/16 07:00 Resp 17 11/19/16 07:00 BP 122/76 11/19/16 07:00 Pulse Ox 100 11/19/16 07:00 - Labs Result Diagrams: 11/19/16 06:31 11/19/16 06:31 Labs: Laboratory Results - last 24 hr 11/18/16 11/18/16 11/18/16 04:30 08:11 12:24 WBC RBC Hgb Hct MCV MCH MCHC RDW Plt Count MPV Neut % (Auto) Lymph % (Auto) Scurry % (Auto) Eos % (Auto) Baso % (Auto) Neut # Lymph # Scurry # Eos # Baso # PT INR APTT Sodium Potassium Chloride Carbon Dioxide Anion Gap BUN Creatinine Est GFR ( Amer) Est GFR (Non-Af Amer) POC Glucose (mg/dL) 100 Random Glucose Hemoglobin A1c 6.0 Calcium Phosphorus Magnesium 1.8 Total Bilirubin AST ALT Alkaline Phosphatase Total Creatine Kinase 54 CK-MB (Mass) 0.45 Troponin I, Quant < 0.0120 Total Protein Albumin Globulin Albumin/Globulin Ratio 11/18/16 11/18/16 11/19/16 16:55 21:29 06:31 WBC 11.2 H RBC 4.86 Hgb 14.2 Hct 42.4 MCV 87.2 MCH 29.3 MCHC 33.6 RDW 13.7 Plt Count 222 MPV 9.6 Neut % (Auto) 55.6 Lymph % (Auto) 34.6 Scurry % (Auto) 7.4 Eos % (Auto) 1.8 Baso % (Auto) 0.6 Neut # 6.2 Lymph # 3.9 Scurry # 0.8 Eos # 0.2 Baso # 0.1 PT INR APTT Sodium Potassium Chloride Carbon Dioxide Anion Gap BUN Creatinine Est GFR ( Amer) Est GFR (Non-Af Amer) POC Glucose (mg/dL) 140 H 141 H Random Glucose Hemoglobin A1c Calcium Phosphorus Magnesium Total Bilirubin AST ALT Alkaline Phosphatase Total Creatine Kinase CK-MB (Mass) Troponin I, Quant Total Protein Albumin Globulin Albumin/Globulin Ratio 11/19/16 11/19/16 11/19/16 06:31 06:31 06:31 WBC RBC Hgb Hct MCV MCH MCHC RDW Plt Count MPV Neut % (Auto) Lymph % (Auto) Scurry % (Auto) Eos % (Auto) Baso % (Auto) Neut # Lymph # Scurry # Eos # Baso # PT 12.1 INR 1.1 APTT 39 H D Sodium 136 Potassium 4.4 Chloride 99 Carbon Dioxide 26 Anion Gap 15 BUN 12 Creatinine 0.9 Est GFR ( Amer) > 60 Est GFR (Non-Af Amer) > 60 POC Glucose (mg/dL) Random Glucose 118 H Hemoglobin A1c Calcium 8.4 L Phosphorus 3.2 Magnesium 1.9 Total Bilirubin 0.4 AST 35 ALT 41 Alkaline Phosphatase 81 Total Creatine Kinase CK-MB (Mass) Troponin I, Quant Total Protein 7.6 Albumin 4.2 Globulin 3.4 Albumin/Globulin Ratio 1.2 Attending/Attestation - Attestation I have personally seen and examined this patient.: Yes I have fully participated in the care of the patient.: Yes I have reviewed all pertinent clinical information: Yes Notes (Text): 11/23/16 12:33 Pt with atrial tachycardia will start Cardizem
--- NOTE | 2016-11-18 18:47 | CP.PCM.PN ---
<JoeshaiRadames hin - Last Filed: 11/18/16 18:48> Subjective - Date & Time of Evaluation Date of Evaluation: 11/18/16 Time of Evaluation: 09:01 - Subjective Subjective: Pt seen and examined. Pt reports that she is feeling well. She reports that she experienced a rapid heart rate last night. She denies any current fever, chills , chest pain, shortness of breath, nausea, and vomiting. Objective - Vital Signs/Intake and Output Vital Signs (last 24 hours): Temp Pulse Resp BP Pulse Ox 97.7 F 79 17 139/82 96 11/18/16 16:00 11/18/16 16:00 11/18/16 16:00 11/18/16 16:00 11/18/16 16:00 Intake and Output: 11/18/16 11/18/16 06:59 18:59 Intake Total 1230 Output Total 1000 Balance 230 - Medications Medications: Current Medications Cyclobenzaprine HCl (Flexeril) 5 mg PO BID [facility] Last Admin: 11/18/16 17:02 Dose: 5 mg Enoxaparin Sodium (Lovenox) 40 mg SC DAILY [facility] Last Admin: 11/18/16 09:44 Dose: 40 mg Hydrochlorothiazide (Hydrodiuril) 25 mg PO DAILY [facility] Last Admin: 11/18/16 09:44 Dose: 25 mg Sodium Chloride (Sodium Chloride 0.9%) 1,000 mls @ 70 mls/hr IV .[id number] [facility] Last Admin: 11/18/16 17:53 Dose: 70 mls/hr Ondansetron HCl (Zofran Inj) 4 mg IVP Q6 PRN PRN Reason: Nausea/Vomiting Oxycodone/Acetaminophen (Percocet 5/325 Mg Tab) 1 tab PO Q4H PRN PRN Reason: Pain, severe (8-10) Stop: 11/21/16 02:28 Pantoprazole Sodium (Protonix Ec Tab) 40 mg PO DAILY [facility] Last Admin: 11/18/16 09:44 Dose: 40 mg Zolpidem Tartrate (Ambien) 5 mg PO HS PRN PRN Reason: Insomnia - Labs Labs: 11/18/16 04:30 11/18/16 04:30 PT 13.0 SECONDS (9.7-12.2) H 11/18/16 04:30 INR 1.2 11/18/16 04:30 APTT 50 SECONDS (21-34) H D 11/18/16 04:30 - Constitutional Appears: No Acute Distress - Head Exam Head Exam: ATRAUMATIC, NORMOCEPHALIC - Eye Exam Eye Exam: EOMI, PERRL - ENT Exam ENT Exam: Mucous Membranes Moist. absent: Mucous Membranes Dry - Respiratory Exam Respiratory Exam: Clear to Ausculation Bilateral. absent: Rales, Rhonchi, Wheezes - Cardiovascular Exam Cardiovascular Exam: +S1, +S2. absent: Gallop, Rubs - GI/Abdominal Exam GI & Abdominal Exam: Soft. absent: Distended, Rigid, Tenderness - Extremities Exam Extremities Exam: Full ROM. absent: Pedal Edema - Neurological Exam Neurological Exam: Alert, Awake, Oriented x3 - Psychiatric Exam Psychiatric exam: Normal Affect, Normal Mood - Skin Skin Exam: Normal Color, Warm Assessment and Plan - Assessment and Plan (Free Text) Assessment: Tachyarrythmia: Initial EKG - sinus tahcycardia, LVH, LAE (please see full report) Cardiology, Dr. Dias, consulted. Help appreciated. Repeat EKG - sinus tachycardia Troponins negative x 3 Follow up am EKG Echocardiogram (11/01): normal EF with some diastolic dysfunction, borderline pulmonary HTN (please see full report) CT chest - no evidence of PE, incidental findings noted ( pleasesee full report) CXR - no active disease TSH, Free T4 within normal limits Cardizem 30 mg po q8h as per cardiology HTN: HCTZ 25 mg PO daily Prophylactic Measures: DVT: SCDs, Lovenox 40 mg sc daily GI: Protonix 40 mg PO daily NS IVF 70 cc/hr Ambien prn for insomnia <Jodie Conley V - Last Filed: 11/19/16 07:38> Objective - Vital Signs/Intake and Output Vital Signs (last 24 hours): Temp Pulse Resp BP Pulse Ox 97.5 F L 68 17 122/76 100 11/19/16 00:00 11/19/16 07:00 11/19/16 07:00 11/19/16 07:00 11/19/16 07:00 Intake and Output: 11/19/16 11/19/16 06:59 18:59 Intake Total 1690 Balance 1690 - Medications Medications: Current Medications Cyclobenzaprine HCl (Flexeril) 5 mg PO BID [facility] Last Admin: 11/18/16 17:02 Dose: 5 mg Diltiazem HCl (Cardizem) 30 mg PO Q8H [facility] Last Admin: 11/19/16 02:15 Dose: 30 mg Enoxaparin Sodium (Lovenox) 40 mg SC DAILY [facility] Last Admin: 11/18/16 09:44 Dose: 40 mg Hydrochlorothiazide (Hydrodiuril) 25 mg PO DAILY [facility] Last Admin: 11/18/16 09:44 Dose: 25 mg Sodium Chloride (Sodium Chloride 0.9%) 1,000 mls @ 70 mls/hr IV .[id number] [facility] Last Admin: 11/18/16 17:53 Dose: 70 mls/hr Oxycodone/Acetaminophen (Percocet 5/325 Mg Tab) 1 tab PO Q4H PRN PRN Reason: Pain, severe (8-10) Stop: 11/21/16 02:28 Pantoprazole Sodium (Protonix Ec Tab) 40 mg PO DAILY [facility] Last Admin: 11/18/16 09:44 Dose: 40 mg Zolpidem Tartrate (Ambien) 5 mg PO HS PRN PRN Reason: Insomnia Last Admin: 11/19/16 03:13 Dose: 5 mg - Labs Labs: 11/19/16 06:31 11/19/16 06:31 PT 12.1 SECONDS (9.7-12.2) 11/19/16 06:31 INR 1.1 11/19/16 06:31 APTT 39 SECONDS (21-34) H D 11/19/16 06:31 Attending/Attestation - Attestation I have personally seen and examined this patient.: Yes I have fully participated in the care of the patient.: Yes I have reviewed all pertinent clinical information, including history, physical exam and plan: Yes Notes (Text): This is a late computer entry for 11/18/16. Patient seen, examined, and case discussed with day-time resident. Patient seen with cardiology rounds. Patient has tachycardia requiring beta carol or cardizem. Given prior history of dizziness with beta-carol, patient started on Cardizem 30mg PO Q 8 hours in the evening, if patient feels better in the morning will likely be converted to long acting cardizem. During rounds, patient denies headache, denies chest pain, denies nausea/denies vomitting/denies abdominal pain/denies BRBPR/Denies constipation/Denies diarrhea. Assessment/Plan 1) Tachyarrythmia: * Initial EKG - sinus tahcycardia, LVH, LAE (please see full report) * Cardiology, Dr. Dias, consulted. Help appreciated. (Covering for Dr. Morillo )-->Patient does not want to see her PMD/inspector finishing: Dr. Davis * Repeat EKG - sinus tachycardia * Troponins negative x 3 * Follow up am EKG * Echocardiogram (11/01): normal EF with some diastolic dysfunction, borderline pulmonary HTN (please see full report) * CT chest - no evidence of PE, incidental findings noted ( pleasesee full report) * CXR - no active disease * TSH, Free T4 within normal limits * Cardizem 30 mg po q8h as per cardiology in the evening * Echo (11/07/16): left ventricle systolic function is normal, Ejfection fraction is 65-70%, diastolic dysfunction. Aortic valve is mildly to moderately calcified below the RCC. Doubt vegetation. No aortic regurgitation. No AR/No MR , trace to mild tricupsid regurgitation, borderline pulmonary hypertension, no pulmonic valvular regurgitation * Stress test (11/09/16): no scan of evidence of reversible ischemia noted. Left ventricle systolic function is normal. EF>70% * Allergic to Aspirin * D-dimer: negative 2) History of HTN * HCTZ 25 mg PO daily in the morning 3) Diabetes * controlled * Hgba1c: 6.0 4) Elevated triglycerides * T, Cholestrol: 197, LDL: 111, HDL: 58 * Will need diet and lifestyle modifications 5) Prophylactic Measures: * DVT PPx: SCDs b/l Lovenox 40 mg sc daily * GI ppx: Protonix 40 mg PO daily * NS IVF 70 cc/hr * Ambien prn for insomnia
[2016-11-19 06:33] VITALS: TEMP 97.5
[2016-11-19 06:39] LABS: BASO # 0.1 K/uL (0.0-0.2); BASO % 0.6 % (0.0-2.0); EOS # 0.2 K/uL (0.0-0.7); EOS % 1.8 % (0.0-4.0); HEMATOCRIT 42.4 % (34.0-47.0); LYMPH # 3.9 K/uL (1.0-4.3); LYMPH % 34.6 % (20.0-40.0); MEAN CELL VOLUME 87.2 fL (81.0-99.0); MEAN CORPUSCULAR HEMOGLOBIN 29.3 pg (27.0-31.0); MEAN CORPUSCULAR HGB CONC 33.6 g/dL (33.0-37.0); MEAN PLATELET VOLUME 9.6 fL (7.2-11.7); MONO # 0.8 K/uL (0.0-0.8); MONO % 7.4 % (0.0-10.0); NRBC % 0.2 % (0.0-2.0); RED CELL DISTRIBUTION WIDTH 13.7 % (11.5-14.5); WHITE BLOOD COUNT 11.2 K/uL (4.8-10.8)
[2016-11-19 06:43] LABS: INR 1.1
[2016-11-19 07:10] VITALS: RESP 17
[2016-11-19 07:11] VITALS: BP 122/76; PULSE 68; O2SAT 100
[2016-11-19 07:12] LABS: CHLORIDE 99 mmol/L (98-107); POTASSIUM 4.4 mmol/L (3.6-5.2); SODIUM 136 mmol/L (132-148)
[2016-11-19 07:14] LABS: BILIRUBIN,TOTAL 0.4 mg/dL (0.2-1.3); GFR AFRICAN-AMERICAN > 60
[2016-11-19 07:15] LABS: ALB/GLOB RATIO 1.2 (1.0-2.1); ALKALINE PHOSPHATASE 81 U/L (38-126); ALT/SGPT 41 U/L (9-52); AST/SGOT 35 U/L (14-36); BLOOD UREA NITROGEN 12 mg/dL (7-17); CARBON DIOXIDE 26 mmol/L (22-30); GLUCOSE,RANDOM 118 mg/dL (65-105); TOTAL PROTEIN 7.6 g/dL (6.3-8.3)
[2016-11-19 07:16] LABS: CALCIUM 8.4 mg/dl (8.6-10.4); MAGNESIUM 1.9 mg/dL (1.6-2.3); PHOSPHOROUS 3.2 mg/dL (2.5-4.5)
--- NOTE | 2016-11-19 08:04 | CP.PCM.PN ---
Subjective - Date & Time of Evaluation Date of Evaluation: 11/19/16 Time of Evaluation: 07:40 - Subjective Subjective: Pt much improved for discharge tolerating PO Objective - Vital Signs/Intake and Output Vital Signs (last 24 hours): Temp Pulse Resp BP Pulse Ox 97.5 F L 68 17 122/76 100 11/19/16 00:00 11/19/16 07:00 11/19/16 07:00 11/19/16 07:00 11/19/16 07:00 Intake and Output: 11/19/16 11/19/16 06:59 18:59 Intake Total 1690 Balance 1690 - Medications Medications: Current Medications Cyclobenzaprine HCl (Flexeril) 5 mg PO BID [facility] Last Admin: 11/18/16 17:02 Dose: 5 mg Diltiazem HCl (Cardizem Cd) 240 mg PO DAILY [facility] Enoxaparin Sodium (Lovenox) 40 mg SC DAILY [facility] Last Admin: 11/18/16 09:44 Dose: 40 mg Hydrochlorothiazide (Hydrodiuril) 25 mg PO DAILY [facility] Last Admin: 11/18/16 09:44 Dose: 25 mg Lisinopril (Zestril) 2.5 mg PO DAILY [facility] Oxycodone/Acetaminophen (Percocet 5/325 Mg Tab) 1 tab PO Q4H PRN PRN Reason: Pain, severe (8-10) Stop: 11/21/16 02:28 Pantoprazole Sodium (Protonix Ec Tab) 40 mg PO DAILY [facility] Last Admin: 11/18/16 09:44 Dose: 40 mg Zolpidem Tartrate (Ambien) 5 mg PO HS PRN PRN Reason: Insomnia Last Admin: 11/19/16 03:13 Dose: 5 mg - Labs Labs: 11/19/16 06:31 11/19/16 06:31 PT 12.1 SECONDS (9.7-12.2) 11/19/16 06:31 INR 1.1 11/19/16 06:31 APTT 39 SECONDS (21-34) H D 11/19/16 06:31 - Constitutional Appears: Well - Head Exam Head Exam: ATRAUMATIC - Eye Exam Eye Exam: Normal appearance - ENT Exam ENT Exam: Mucous Membranes Moist - Respiratory Exam Respiratory Exam: NORMAL BREATHING PATTERN - Cardiovascular Exam Cardiovascular Exam: REGULAR RHYTHM - GI/Abdominal Exam GI & Abdominal Exam: Normal Bowel Sounds - Exam External exam: NORMAL EXTERNAL EXAM - Extremities Exam Extremities Exam: Normal Inspection - Neurological Exam Neurological Exam: Alert, Awake - Psychiatric Exam Psychiatric exam: Normal Affect, Normal Mood - Skin Skin Exam: Dry Assessment and Plan (1) Palpitations Assessment & Plan: Continue rate control for atrial tachycardia stable for d/c follow up in office Status: Acute (2) SVT (supraventricular tachycardia) Status: Acute
--- NOTE | 2016-11-19 08:04 | CP.PCM.DIS ---
Provider - Provider Date of Admission: 11/18/16 00:31 Attending physician: Jodie Conley DO Time Spent in preparation of Discharge (in minutes): 31 Diagnosis - Discharge Diagnosis (1) Palpitations Status: Chronic Comment: Controlled and resolved. Start Cardizem CD 240mg PO Tab PO daily. Patient does not want to follow-up with her prior value analysis coordinator/PMD. Discussed with cardiology, Dr Kinsey regarding recommendedation. Patient advised to follow-up within one week of discharge with cardiology. (2) Elevated cholesterol with elevated triglycerides Status: Chronic Comment: Patient recommended for diet and life style modifications. Patient will need statin, to be determine upon follow-up with PCP or value analysis coordinator given patient is starting new medications. (3) Tachycardia Status: Chronic Comment: Controlled and resolved. Start Cardizem CD 240mg PO Tab PO daily. Patient does not want to follow-up with her prior value analysis coordinator/PMD. Discussed with cardiology, Dr Kinsey regarding recommendedation. Patient advised to follow-up within one week of discharge with cardiology. (4) Diabetes Status: Chronic Comment: Controlled. Hgba1c: 6.0. Low dose emma inhibitor as prophylactic renoprotection (5) HTN (hypertension) Status: Chronic Comment: Start Cardizem CD 240mg PO 1 tab PO daily; discussed with cardiology in agreement. Start Lisinopril 2.5mg PO daily as renoprotection in light of diabetes history. Continue HCTZ 25mg 1 tab PO daily. Low salt diet (6) Prophylactic measure Status: Acute Comment: GI px: Protonix 40mg PO daily. DVT px: lovenox 40mg subq daily. Patient is allergic to aspirin. Hospital Course - Lab Results Lab Results: Most Recent Lab Values WBC 11.2 K/uL (4.8-10.8) H 11/19/16 06:31 RBC 4.86 Mil/uL (3.80-5.20) 11/19/16 06:31 Hgb 14.2 g/dL (11.0-16.0) 11/19/16 06:31 Hct 42.4 % (34.0-47.0) 11/19/16 06:31 MCV 87.2 fL (81.0-99.0) 11/19/16 06:31 MCH 29.3 pg (27.0-31.0) 11/19/16 06:31 MCHC 33.6 g/dL (33.0-37.0) 11/19/16 06:31 RDW 13.7 % (11.5-14.5) 11/19/16 06:31 Plt Count 222 K/uL (130-400) 11/19/16 06:31 MPV 9.6 fL (7.2-11.7) 11/19/16 06:31 Neut % (Auto) 55.6 % (50.0-75.0) 11/19/16 06:31 Lymph % (Auto) 34.6 % (20.0-40.0) 11/19/16 06:31 Isabela % (Auto) 7.4 % (0.0-10.0) 11/19/16 06:31 Eos % (Auto) 1.8 % (0.0-4.0) 11/19/16 06:31 Baso % (Auto) 0.6 % (0.0-2.0) 11/19/16 06:31 Neut # 6.2 K/uL (1.8-7.0) 11/19/16 06:31 Lymph # 3.9 K/uL (1.0-4.3) 11/19/16 06:31 Isabela # 0.8 K/uL (0.0-0.8) 11/19/16 06:31 Eos # 0.2 K/uL (0.0-0.7) 11/19/16 06:31 Baso # 0.1 K/uL (0.0-0.2) 11/19/16 06:31 PT 12.1 SECONDS (9.7-12.2) 11/19/16 06:31 INR 1.1 11/19/16 06:31 APTT 39 SECONDS (21-34) H D 11/19/16 06:31 D-Dimer, Quantitative < 200 ng/mlDDU (0-243) 11/17/16 19:40 Sodium 136 mmol/L (132-148) 11/19/16 06:31 Potassium 4.4 mmol/L (3.6-5.2) 11/19/16 06:31 Chloride 99 mmol/L (98-107) 11/19/16 06:31 Carbon Dioxide 26 mmol/L (22-30) 11/19/16 06:31 Anion Gap 15 (10-20) 11/19/16 06:31 BUN 12 mg/dL (7-17) 11/19/16 06:31 Creatinine 0.9 MG/DL (0.7-1.2) 11/19/16 06:31 Est GFR ( Amer) > 60 11/19/16 06:31 Est GFR (Non-Af Amer) > 60 11/19/16 06:31 POC Glucose (mg/dL) 141 mg/dL (65-110) H 11/18/16 21:29 Random Glucose 118 mg/dL (65-105) H 11/19/16 06:31 Hemoglobin A1c 6.0 % (4.2-6.5) 11/18/16 04:30 Calcium 8.4 mg/dl (8.6-10.4) L 11/19/16 06:31 Phosphorus 3.2 mg/dL (2.5-4.5) 11/19/16 06:31 Magnesium 1.9 mg/dL (1.6-2.3) 11/19/16 06:31 Total Bilirubin 0.4 mg/dL (0.2-1.3) 11/19/16 06:31 AST 35 U/L (14-36) 11/19/16 06:31 ALT 41 U/L (9-52) 11/19/16 06:31 Alkaline Phosphatase 81 U/L (38-126) 11/19/16 06:31 Total Creatine Kinase 54 U/L (30-135) 11/18/16 08:11 CK-MB (Mass) 0.45 ng/mL (0.0-3.38) 11/18/16 08:11 Troponin I < 0.0120 ng/mL (0.00-0.120) 11/17/16 19:40 Troponin I, Quant < 0.0120 ng/mL (0.00-0.120) 11/18/16 08:11 NT-Pro-B Natriuret Pep 28.8 pg/mL (0-900) 11/17/16 19:40 Total Protein 7.6 g/dL (6.3-8.3) 11/19/16 06:31 Albumin 4.2 g/dL (3.5-5.0) 11/19/16 06:31 Globulin 3.4 gm/dL (2.2-3.9) 11/19/16 06:31 Albumin/Globulin Ratio 1.2 (1.0-2.1) 11/19/16 06:31 Triglycerides 163 mg/dL (0-149) H D 11/18/16 04:30 Cholesterol 197 mg/dL (0-199) 11/18/16 04:30 LDL Cholesterol Direct 111 mg/dL (0-129) 11/18/16 04:30 HDL Cholesterol 58 mg/dL (30-70) 11/18/16 04:30 Thyroxine (T4) 8.51 ug/dL (5.5-11.0) 11/18/16 04:30 TSH 3rd Generation 4.06 mIU/L (0.46-4.68) 11/18/16 04:30 Urine Color Yellow (YELLOW) 11/17/16 19:40 Urine Clarity Clear (Clear) 11/17/16 19:40 Urine pH 7.0 (5.0-8.0) 11/17/16 19:40 Ur Specific [place] 1.006 (1.003-1.030) 11/17/16 19:40 Urine Protein Negative mg/dL (NEGATIVE) 11/17/16 19:40 Urine Glucose (UA) Normal mg/dL (Normal) 11/17/16 19:40 Urine Ketones Negative mg/dL (NEGATIVE) 11/17/16 19:40 Urine Blood Negative (NEGATIVE) 11/17/16 19:40 Urine Nitrate Negative (NEGATIVE) 11/17/16 19:40 Urine Bilirubin Negative (NEGATIVE) 11/17/16 19:40 Urine Urobilinogen Normal mg/dL (0.2-1.0) 11/17/16 19:40 Ur Leukocyte Esterase Trace Delfino/uL (Negative) 11/17/16 19:40 Urine WBC (Auto) 4 /hpf (0-5) 11/17/16 19:40 Urine RBC (Auto) < 1 /hpf (0-3) 11/17/16 19:40 Ur Squamous Epith Cells 4 /hpf (0-5) 11/17/16 19:40 Urine Bacteria Occ (<OCC) H 11/17/16 19:40 - Hospital Course Hospital Course: Per H&P "CC: "Fast heart beat and chest pain" 71 F with PMH of HTN presents to [facility] ED for chest pain and tachycardia. Patient stated it began same day in the morning while she was at home. She was not doing anything in particular when onset occurred. Patient stated that she never experienced these symptoms before. Patient was seeing Dr. Isaac as outpatient for about past month but is looking for a new physician. She previosuly saw Dr. Martin but her office was too far for patient. Patient had stress test and ECHO done in 10/23 and stated both were normal. Patient rated pain as 10/10 in severity. She described the pain as constant, sharp, and cramping. She stated that pain is reproducible. She reports a "lump" under her left breast. She denies any alleviating factors while palpation exacerbates her pain. Admits to palpitations but denies fever/chills, syncope, dizziness/lightheadedness, trauma, sob, abd pain, n/v/d, constipation, incontinence. PMD: Dr. Isaac PMH: HTN Meds: HCTZ 25 mg PO daily, Ambien 5 mg PO HS Allergy: ASA PSH: denies Hosp: denies FH: DM, CAD, HTN Social: denies tobacco/etoh/illicit drug use" Summary of hospitalization: Patient seen and observed on telemetry. Cardiology (Dr Dias) consulted help appreciated. Per patient request, refuses to her prior PMD/value analysis coordinator, Dr Isaac. Patient monitored on telemetry given chief complaint of palpitations and tachyarrhytmia. Patient started on new medication: Cardizem 30mg PO q 8hours. Patient denies symptoms associated with new medication. Patient is ambulatory and asymptomatic. CT Chest negative for PE. D-dimer is negative. Thryoid studies within normal. Discussed with cardiology, upon discharge patient to use Cardizem CD 240mg PO 1 tab Po daily, and low dose emma inhibitor Lisinopril 2.5mg PO 1 tab PO daily. Note: patient is allergic to aspirin. Patient recommended to follow-up with cardiology, Dr Dias upon discharge within one week of discharge. New prescriptions: Cardizem CD 240mg 1 tab Po daily (30 pills/no refills), Lisinopril 2.5mg Po daily (30/no refills). Patient is recommended for statin but should be started when seen with general PCP or value analysis coordinator, since with patient is starting new medications to monitor adverse reactions for blood pressure and associated tachyarrhythmia This is a summary of patient's hospitalization. Please see EMR for further details. Discharge Exam - Head Exam Head Exam: ATRAUMATIC, NORMAL INSPECTION, NORMOCEPHALIC Additional comments: obese, pleasant lady - Eye Exam Eye Exam: EOMI - ENT Exam ENT Exam: Mucous Membranes Moist - Respiratory Exam Respiratory Exam: Clear to PA & Lateral, NORMAL BREATHING PATTERN. absent: Rales, Rhonchi - Cardiovascular Exam Cardiovascular Exam: REGULAR RHYTHM, +S1, +S2 - GI/Abdominal Exam GI & Abdominal Exam: Normal Bowel Sounds, Soft. absent: Diminished Bowel Sounds , Distended, Firm, Guarding, Rebound, Rigid, Tenderness - Extremities Exam Extremities exam: pedal pulses present Additional comments: no cyanosis, no clubbing, no edema b/l lower extremities - Neurological Exam Neurological exam: Alert, Normal Gait, Oriented x3 - Psychiatric Exam Psychiatric exam: Normal Affect, Normal Mood - Skin Skin Exam: Dry, Normal Color, Warm Discharge Plan - Discharge Medications Prescriptions: diltiaZEM CD [Cardizem CD] 240 mg PO DAILY #30 c24 Lisinopril [Zestril] 2.5 mg PO DAILY #30 tab - Follow Up Plan Condition: GOOD Disposition: HOME/ ROUTINE Referrals: Kelsey Dias MD [Staff Provider] -
[2016-11-19] MEDS ORDERED: diltiaZEM 240 mg/24 Hours CD Cap PO SCH (10:00)
--- NOTE | 2016-11-19 19:06 | CARD ---
APPROVED REPORT EKG Measurement Heart [id number] QT0T0 QTc0 <Conclusion> No QRS complexes found, no ECG analysis possible
--- NOTE | 2016-11-19 19:06 | CARD ---
APPROVED REPORT EKG Measurement Heart [id number] [place] 166P68 [id number] <Conclusion> Normal sinus rhythm Normal ECG
--- NOTE | 2016-11-21 11:38 | CARD ---
APPROVED REPORT EKG Measurement Heart [id number] CT 158P59 [id number] <Conclusion> Sinus tachycardia Possible Left atrial enlargement Left ventricular hypertrophy Nonspecific ST abnormality Abnormal ECG
== END 2016-11-19 11:00 | disposition home or self-care (01) ==
LOC: C.ER 18:09 → C.9I 11-18 00:31
PROVIDERS: ADMIT Hospitalist; ATTEND Hospitalist
DX: I47.1 Supraventricular tachycardia (principal); M81.0 Age-related osteoporosis without current pathological fracture; I12.9 Hypertensive chronic kidney disease with stage 1 through stage 4 chronic kidney disease, or unspecified chronic kidney disease; N18.9 Chronic kidney disease, unspecified; G47.00 Insomnia, unspecified

== ENCOUNTER 2016-11-20 00:30 | Inpatient (IN) | payer MEDICARE, OTHER ==
[2016-11-20 00:30] VITALS: BMI 36.3
[2016-11-20] MEDS ORDERED: Sodium Chloride 0.9% 1,000 ML IV ONE (00:55)
[2016-11-20] MEDS ORDERED: Enoxaparin 40 mg Syringe SC STA (01:00)
[2016-11-20] MEDS ORDERED: Nitroglycerin 2% Ointment Foilpak UD TOP STA (01:00)
--- NOTE | 2016-11-20 01:01 | C.PDOC ---
History Of Present Illness A 71 y/o female presents to the ER c/o chest pain of the left lateral chest wall with pain radiation to the upper extremities that began 2300 today. Pt notes the pain as a persistent tightness. Pt denies fever, chills, trauma to the area, Shortness of breath, dizziness, nausea, vomiting, or any other complaints. Time Seen by Provider: 11/20/16 01:00 Chief Complaint (Nursing): Chest Pain History Per: Patient History/Exam Limitations: no limitations Onset/Duration Of Symptoms: Hrs Current Symptoms Are (Timing): Still Present Severity: Mild Quality: Tightness (Persistant) Recent travel outside of the [place]: No Additional History Per: Patient Past Medical History Reviewed: Historical Data, Nursing Documentation, Vital Signs Vital Signs: Last Vital Signs Temp 97.5 F L 11/20/16 00:38 Pulse 94 H 11/20/16 01:24 Resp 17 11/20/16 01:24 BP 122/61 11/20/16 00:38 Pulse Ox 100 11/20/16 02:00 - Medical History PMH: HTN, Osteoporosis, Chronic Kidney Disease (SEE COMMENT) Surgical History: Endoscopy, Tonsillectomy - [facility] ENDO RECTUM POLYPECTOMY (08/29/14) ESOPHAGOGASTRODUODENOSCOPY [EGD] W/CLOSED BIOPSY (10/03/14) PHARYNGEAL BIOPSY (06/10/14) Family History: States: Unknown Family Hx - Social History Hx Tobacco Use: No Hx Alcohol Use: No Hx Substance Use: No - Immunization History Hx Tetanus Toxoid Vaccination: Yes Hx Influenza Vaccination: Yes (02/2016) Hx Pneumococcal Vaccination: Yes Review Of Systems Except As Marked, All Systems Reviewed And Found Negative. Constitutional: Negative for: Fever, Chills, Other (Trauma to the area) Cardiovascular: Positive for: Chest Pain ( left lateral chest wall radiation to upper extremities) Respiratory: Negative for: Shortness of Breath Gastrointestinal: Negative for: Nausea, Vomiting Musculoskeletal: Positive for: Arm Pain (Pain radiation) Neurological: Negative for: Dizziness Physical Exam - Physical Exam Appears: Non-toxic, No Acute Distress Skin: Warm, Dry, No Diaphoretic Head: Atraumatic, Normacephalic Eye(s): bilateral: Normal Inspection Cardiovascular: Rhythm Regular, No Murmur Respiratory: Normal Breath Sounds, No Rales, No Rhonchi, No Wheezing Gastrointestinal/Abdominal: Soft, No Tenderness Extremity: Normal ROM, No Pedal Edema, No Deformity, No Swelling Neurological/Psych: Oriented x3, Normal Speech, Normal Cognition ED Course And Treatment - Laboratory Results Result Diagrams: 11/20/16 01:02 11/20/16 01:02 ECG: Interpreted By Me, Viewed By Me ECG Rhythm: Sinus Rhythm ECG Interpretation: Normal Interpretation Of ECG: Possible LVH Rate From EC O2 Sat by Pulse Oximetry: 100 (RA) Pulse Ox Interpretation: Normal - Radiology CXR: Interpreted by Me CXR Interpretation: Yes: No Acute Disease. No: Infiltrates Medical Decision Making Medical Decision Making: Plans: -EKG -CXR -Lovenox -Nitro -IV fluids -Reassess and disposition Patient is resting comfortably, is no longer having chest pain or shortness of breath. Patient has no risk factors for pulmonary emboli or DVT. Clinical presentation is not suggestive of aortic dissection. Patient is being discharged home and is being advised to follow up with physician/clinic in 1-2 days. Disposition Discussed With Dr.: Jazzy Jacobsen Doctor Will See Patient In The: Hospital Counseled Patient/Family Regarding: Diagnosis - Disposition Disposition: HOSPITALIZED Disposition Time: 01:58 Condition: STABLE - POA Present On Arrival: None - Clinical Impression Clinical Impression: Chest pain, Coronary insufficiency - Scribe Statement The provider has reviewed the documentation as recorded by the Scribnnamdi maier All medical record entries made by the Scribe were at my direction and personally dictated by me. I have reviewed the chart and agree that the record accurately reflects my personal performance of the history, physical exam, medical decision making, and the department course for this patient. I have also personally directed, reviewed, and agree with the discharge instructions and disposition.
[2016-11-20] MEDS ORDERED: Nitroglycerin 2% Ointment Foilpak UD TOP ONE (01:03)
[2016-11-20 01:09] LABS: BASO # 0.1 K/uL (0.0-0.2); BASO % 0.7 % (0.0-2.0); EOS # 0.2 K/uL (0.0-0.7); EOS % 1.9 % (0.0-4.0); HEMATOCRIT 41.7 % (34.0-47.0); LYMPH # 3.6 K/uL (1.0-4.3); LYMPH % 27.9 % (20.0-40.0); MEAN CELL VOLUME 86.2 fL (81.0-99.0); MEAN CORPUSCULAR HEMOGLOBIN 29.3 pg (27.0-31.0); MEAN PLATELET VOLUME 9.4 fL (7.2-11.7); MONO % 7.4 % (0.0-10.0); NRBC % 0.1 % (0.0-2.0); RED CELL DISTRIBUTION WIDTH 13.5 % (11.5-14.5)
[2016-11-20 01:15] LABS: INR 1.1
[2016-11-20] MEDS ORDERED: Enoxaparin 80 mg Syringe ONE (01:16)
[2016-11-20] MEDS ORDERED: Sodium Chloride 0.9% 1,000 ML ONE (01:16)
[2016-11-20 01:19] LABS: CHLORIDE 95 mmol/L (98-107)
[2016-11-20 01:20] LABS: POTASSIUM 3.5 mmol/L (3.6-5.2); SODIUM 134 mmol/L (132-148)
[2016-11-20 01:22] LABS: ALB/GLOB RATIO 1.4 (1.0-2.1); ALKALINE PHOSPHATASE 93 U/L (38-126); AST/SGOT 34 U/L (14-36); BILIRUBIN,TOTAL 0.4 mg/dL (0.2-1.3); CARBON DIOXIDE 28 mmol/L (22-30); GFR AFRICAN-AMERICAN > 60; TOTAL PROTEIN 8.4 g/dL (6.3-8.3)
[2016-11-20 01:23] LABS: ALT/SGPT 42 U/L (9-52); BLOOD UREA NITROGEN 13 mg/dL (7-17); CALCIUM 8.7 mg/dl (8.6-10.4); GLUCOSE,RANDOM 141 mg/dL (65-105)
[2016-11-20] MEDS: Nitroglycerin 2% Ointment Foilpak UD TOP SCH ×3 (06:10→18:00)
--- NOTE | 2016-11-20 09:28 | RAD ---
HISTORY: r/o infiltrate bed 6 COMPARISON: Comparison is made to the previous study dated 11/17/2016 FINDINGS: LUNGS: No active pulmonary disease. PLEURA: No significant pleural effusion identified, no pneumothorax apparent. CARDIOVASCULAR: Normal. OSSEOUS STRUCTURES: No significant abnormalities. VISUALIZED UPPER ABDOMEN: Normal. OTHER FINDINGS: None. IMPRESSION: Suboptimal study due to portable technique and patient's body habitus. No definite evidence of focal infiltrate.
[2016-11-20] MEDS: diltiaZEM 240 mg/24 Hours CD Cap PO SCH (09:32)
[2016-11-20] MEDS: Enoxaparin 40 mg Syringe SC SCH (09:33)
--- NOTE | 2016-11-20 14:42 | CP.PCM.HP ---
History of Present Illness - History of Present Illness History of Present Illness: COMPREHENSIVE HISTORY & PHYSICAL EXAM HPI PT ADMITTED WITH CP LEFT SIDE RADIATING TO LEFR A/W DIAPHORESIS. ALL PRELIMANARY CARDIAC W/U IN ER ARE NEGATIVE PAST HIST. HAS HAD MULTIPLE ADMISSION FOR CP . ALL W/U NEG. EGD IN 2015 , GASTRITIS AND H. HERNIA PERSONAL HIST: Smoking. N Alcohol. N Allergy N Travel_- . FAMILY HIST : ROS : Constitutional: Negative for weight change, chills, night sweats, fatigue and usage of assist device. Eyes: Negative for redness, swelling, itching, discharge, vision changes, blurry vision, double vision, glaucoma, cataracts, Ears: Negative for hearing loss, ringing, , tinnitus, vertigo Nose: Negative for rhinorrhea, stuffiness, sniffing, itching, postnasal drip, discoloration, nasal congestion and epistaxis. Throat: Negative for throat clearing, sore throat, hoarseness, difficulty swallowing and difficulty speaking. Respiratory: Negative for cough, chest tightness, sputum or phlegm, chronic cough, hemoptysis, wheezing, snoring at night, pleuritic chest pain and daytime somnolence. Cardiovascular POS for chest pain, palpitations, orthopnea, PND, NO Edema of legs, leg cramps, angina, claudication, , irregular heartbeat, Neurology: Negative for irritability, muscle weakness, numbness and tingling, seizures, tremors, migraines, slurred speech, syncope, memory loss, mood changes , recurrent headaches Gastrointestinal: Negative for difficulty swallowing, diarrhea, constipation, black stools, rectal bleeding, nausea, flatulence, reflux, poor appetite, changes in bowel habits, abdominal pain Genitourinary: Negative for frequent urination, hematuria, discharge, incontinence, urinary retention, frequent UTI, Psychiatric: Negative for depression, anxiety/panic, suicidal tendencies, Musculoskeletal: Negative for swollen joints, back pain, , neck pain, morning stiffness of joints, . Skin: Negative for rash, ulcers, itching, dry skin and pigmented lesions. P/E: Constitutional: Appears stated age and in no apparent distress. Head: Normocephalic. Ears: External ear canals patent without inflammation. Tympanic membranes intact with normal light reflex and landmark. Eyes: Pupils are central, bilaterally equal, symmetrical and reacts to light with normal movements and no icterus or pallor. Nose: External nares are patent. Mucosa is pink Mouth-Throat: Good general appearance and condition. No post-pharyngeal/oropharyngeal erythema and tonsillar hypertrophy. Good dental hygiene. Neck-Lymphatic: Neck is supple with normal ROM, no thyromegaly, lymph nodes or masses. JVD is normal with no carotid bruit. Lungs: Clear to percussion and auscultation with bilateral normal air entry. Cardiovascular: S1 and S2 are normal with no murmurs, gallops and rub. GI Exam: No hepatomegaly. Abdomen is soft and non-tender. No Organomegaly , masses or hernias are evident and bowel sounds are normal and active. Neurology: Higher function and all cranial nerves intact, with no gross motor or sensory deficit. Superficial and deep reflexes are normal with downwards planters. No cerebellar deficit with normal gait. Musculoskeletal: No tender spots with normal curvature of the spine with no swelling or restricted ROM of the small and large joints. Extremities: Homans sign absent. Intact pulses with no pitting edema, calf tenderness or skin color changes. Skin: No rash, eruptions or abnormal skin pigmentation LAB/RADIOLOGY: ASSESMENT : TYPICAL CP , R/O ISCHEMIC HEART DISEASE HTN GERD PLAN: SEE ORDERS Present on Admission - Present on Admission Any Indicators Present on Admission: No Past Patient History - Past Medical History & Family History Past Medical History?: Yes - Past Social History Smoking Status: Never Smoked - CARDIAC Hx Cardiac Disorders: Yes Hx Hypertension: Yes - PULMONARY Hx Respiratory Disorders: No - NEUROLOGICAL Hx Neurological Disorder: No - HEENT Hx HEENT Problems: Yes (SEE COMMENT) Other/Comment: hx of pharyngitis; TONSILLECTOMY. HX: PRYIFORM SINUS LESION. difficulty swallowing - RENAL Hx Chronic Kidney Disease: Yes (SEE COMMENT) Other/Comment: Donated left Kidney to son 2003 - ENDOCRINE/METABOLIC Hx Endocrine Disorders: No Hx Adrenal Cancer: No Hx Diabetes Insipidus: No Hx Diabetes Mellitus Type 1: No Hx Diabetes Mellitus Type 2: No Hx Hyperthyroidism: No Other/Comment: Pre diabetic doesnt take medications - HEMATOLOGICAL/ONCOLOGICAL Hx Blood Disorders: No - INTEGUMENTARY Hx Dermatological Problems: No - MUSCULOSKELETAL/RHEUMATOLOGICAL Hx Musculoskeletal Disorders: No Hx Falls: No - GASTROINTESTINAL Hx Gastrointestinal Disorders: Yes Hx Gastroesophageal Reflux: Yes - GENITOURINARY/GYNECOLOGICAL Hx Genitourinary Disorders: No - PSYCHIATRIC Hx Psychophysiologic Disorder: No Hx Substance Use: No - SURGICAL HISTORY Hx Surgeries: Yes Hx Tonsillectomy: Yes Other/Comment: 2003 Pt donated her left kidney to her son - ANESTHESIA Hx Anesthesia: Yes Hx Anesthesia Reactions: No Hx Malignant Hyperthermia: No Meds Allergies/Adverse Reactions: Allergies Allergy/AdvReac Type Severity Reaction Status Date / Time aspirin Allergy Intermediate SWELLING Verified 11/20/16 00:41 Results - Vital Signs Recent Vital Signs: Last Vital Signs Temp 97.8 F 11/20/16 03:30 Pulse 72 11/20/16 13:05 Resp 20 11/20/16 03:30 BP 125/70 11/20/16 13:05 Pulse Ox 97 11/20/16 03:30 - Labs Result Diagrams: 11/20/16 01:02 11/20/16 01:02 Labs: Laboratory Results - last 24 hr 11/20/16 11:02 Total Creatine Kinase 68 CK-MB (Mass) 0.70 Troponin I, Quant < 0.0120
[2016-11-21] MEDS: Nitroglycerin 2% Ointment Foilpak UD TOP SCH ×4 (00:02→18:25)
[2016-11-21] MEDS: diltiaZEM 240 mg/24 Hours CD Cap PO SCH (10:04)
[2016-11-21] MEDS: Enoxaparin 40 mg Syringe SC SCH (10:04)
--- NOTE | 2016-11-21 13:46 | CP.PCM.PN ---
Subjective - Date & Time of Evaluation Date of Evaluation: 11/21/16 Time of Evaluation: 13:44 - Subjective Subjective: CHIEF COMPLAINTS TODAY : CP LESS ROS. HEENT : N. Resp : No cough, wheezing ,pleuritic CP ,or hemoptysis Cardio : No PND, orthopnea, palpitation GI : No abd.pain, n/v ,diarrhea or GI bleeding . CINEMA OR THEATRE MANAGER : No headache, vertigo, focal deficit. Musculoskel : No joint swelling , Derm : No rash Psych : Normal affect. Ext : No swelling ,calf pain PE. Pt. is alert awake in no distress. V.S As noted in the chart Head ,ear nose,throat and eyes : Normal. Neck : Supple with normal carotids. Lungs: Clear air entry. Heart : S1 & S2 normal with S4. No murmur. Abd : Soft non tender with normal bowel sounds. Neuro : Moves all ext. with no localized deficit. Ext : No edema with intact pulses.Non tender calves Derm : No rashes or decubitus ulcer. LABS/RADIOLOGY: ASSESSMENT/PLAN : D/W DIFFERENT OPTION FOR TRATMENT, Objective - Vital Signs/Intake and Output Vital Signs (last 24 hours): Temp Pulse Resp BP Pulse Ox 98.6 F 80 20 126/76 96 11/21/16 13:00 11/21/16 13:00 11/21/16 13:00 11/21/16 13:00 11/21/16 13:00 - Medications Medications: Current Medications Cyclobenzaprine HCl (Flexeril) 5 mg PO BID [facility] Last Admin: 11/21/16 10:04 Dose: 5 mg Diltiazem HCl (Cardizem Cd) 240 mg PO DAILY [facility] Last Admin: 11/21/16 10:04 Dose: 240 mg Enoxaparin Sodium (Lovenox) 40 mg SC DAILY [facility] Last Admin: 11/21/16 10:04 Dose: 40 mg Hydrochlorothiazide (Hydrodiuril) 25 mg PO DAILY [facility] Last Admin: 11/21/16 10:04 Dose: 25 mg Lisinopril (Zestril) 2.5 mg PO DAILY [facility] Last Admin: 11/21/16 10:03 Dose: Not Given Nitroglycerin (Nitro-Bid 2% Oint) 1 ea TOP Q6 [facility] Last Admin: 11/21/16 13:00 Dose: Not Given Zolpidem Tartrate (Ambien) 5 mg PO HS [facility] - Labs Labs: PT 12.0 SECONDS (9.7-12.2) 11/20/16 01:05 INR 1.1 11/20/16 01:05 APTT 36 SECONDS (21-34) H 11/20/16 01:05
[2016-11-22] MEDS: Nitroglycerin 2% Ointment Foilpak UD TOP SCH ×4 (00:12→18:17)
--- NOTE | 2016-11-22 09:43 | CARD ---
APPROVED REPORT EKG Measurement Heart [id number] [place] 176P38 [id number] <Conclusion> Normal sinus rhythm Voltage criteria for left ventricular hypertrophy Abnormal ECG
[2016-11-22] MEDS: Enoxaparin 40 mg Syringe SC SCH (10:24)
[2016-11-22] MEDS: diltiaZEM 240 mg/24 Hours CD Cap PO SCH (10:24)
--- NOTE | 2016-11-22 13:21 | CP.PCM.PN ---
Subjective - Date & Time of Evaluation Date of Evaluation: 11/22/16 Time of Evaluation: 13:20 - Subjective Subjective: CHIEF COMPLAINTS TODAY : CP LESS NOW PAIN IS IN LLQ ROS. HEENT : N. Resp : No cough, wheezing ,pleuritic CP ,or hemoptysis Cardio : No PND, orthopnea, palpitation GI : No abd.pain, n/v ,diarrhea or GI bleeding . LIQUOR CLERK : No headache, vertigo, focal deficit. Musculoskel : No joint swelling , Derm : No rash Psych : Normal affect. Ext : No swelling ,calf pain PE. Pt. is alert awake in no distress. V.S As noted in the chart Head ,ear nose,throat and eyes : Normal. Neck : Supple with normal carotids. Lungs: Clear air entry. Heart : S1 & S2 normal with S4. No murmur. Abd : Soft non tender with normal bowel sounds. Neuro : Moves all ext. with no localized deficit. Ext : No edema with intact pulses.Non tender calves Derm : No rashes or decubitus ulcer. LABS/RADIOLOGY: ASSESSMENT/PLAN : CT ABD Objective - Vital Signs/Intake and Output Vital Signs (last 24 hours): Temp Pulse Resp BP Pulse Ox 98.1 F 84 18 118/81 97 11/22/16 07:05 11/22/16 10:23 11/22/16 07:05 11/22/16 10:23 11/22/16 07:05 Intake and Output: 11/22/16 11/22/16 11:59 23:59 Intake Total 300 Balance 300 - Medications Medications: Current Medications Cyclobenzaprine HCl (Flexeril) 5 mg PO BID [facility] Last Admin: 11/22/16 10:24 Dose: 5 mg Diltiazem HCl (Cardizem Cd) 240 mg PO DAILY [facility] Last Admin: 11/22/16 10:24 Dose: 240 mg Enoxaparin Sodium (Lovenox) 40 mg SC DAILY [facility] Last Admin: 11/22/16 10:24 Dose: 40 mg Hydrochlorothiazide (Hydrodiuril) 25 mg PO DAILY [facility] Last Admin: 11/22/16 10:24 Dose: 25 mg Lisinopril (Zestril) 2.5 mg PO DAILY [facility] Last Admin: 11/22/16 10:24 Dose: Not Given Nitroglycerin (Nitro-Bid 2% Oint) 1 ea TOP Q6 [facility] Last Admin: 11/22/16 12:49 Dose: Not Given Zolpidem Tartrate (Ambien) 5 mg PO HS [facility] Last Admin: 11/21/16 22:14 Dose: 5 mg - Labs Labs: PT 12.0 SECONDS (9.7-12.2) 11/20/16 01:05 INR 1.1 11/20/16 01:05 APTT 36 SECONDS (21-34) H 11/20/16 01:05
[2016-11-22] MEDS ORDERED: Iohexol 240 (50 ml) PO ONE (14:15)
[2016-11-22 14:20] LABS: BASO % 0.4 % (0.0-2.0); EOS # 0.2 K/uL (0.0-0.7); EOS % 1.9 % (0.0-4.0); HEMATOCRIT 41.4 % (34.0-47.0); LYMPH # 3.5 K/uL (1.0-4.3); LYMPH % 30.2 % (20.0-40.0); MEAN CELL VOLUME 85.6 fL (81.0-99.0); MEAN CORPUSCULAR HEMOGLOBIN 29.4 pg (27.0-31.0); MEAN CORPUSCULAR HGB CONC 34.4 g/dL (33.0-37.0); MEAN PLATELET VOLUME 9.4 fL (7.2-11.7); MONO # 0.8 K/uL (0.0-0.8); MONO % 6.8 % (0.0-10.0); NRBC % 0.1 % (0.0-2.0); RED CELL DISTRIBUTION WIDTH 13.6 % (11.5-14.5); WHITE BLOOD COUNT 11.6 K/uL (4.8-10.8)
[2016-11-22 14:39] LABS: CHLORIDE 91 mmol/L (98-107); POTASSIUM 3.5 mmol/L (3.6-5.2); SODIUM 133 mmol/L (132-148)
[2016-11-22 14:42] LABS: CARBON DIOXIDE 29 mmol/L (22-30); GFR AFRICAN-AMERICAN > 60
[2016-11-22 14:43] LABS: BLOOD UREA NITROGEN 14 mg/dL (7-17); CALCIUM 9.3 mg/dl (8.6-10.4); GLUCOSE,RANDOM 113 mg/dL (65-105)
--- NOTE | 2016-11-22 17:23 | CT ---
PROCEDURE: CT Abdomen and Pelvis without IV contrast. HISTORY: LLQ PAIN , DIVERTICULITIS COMPARISON: CT of the abdomen and pelvis performed 10/15/16 TECHNIQUE: Contiguous axial images of the abdomen and pelvis. Oral contrast was administered. No IV contrast given. Coronal and Sagittal reformats generated and reviewed . Radiation dose: Total exam DLP = 1081.48 mGy-cm. This CT exam was performed using one or more of the following dose reduction techniques: Automated exposure control, adjustment of the mA and/or kV according to patient size, and/or use of iterative reconstruction technique. FINDINGS: There is limited evaluation of the solid organs without the administration of IV contrast. LOWER THORAX: No visible consolidation, pleural effusion, or pneumothorax. LIVER: Hypoattenuation of the liver compatible with hepatic steatosis. GALLBLADDER AND BILE DUCTS: Unremarkable. PANCREAS: Unremarkable. SPLEEN: Unremarkable. ADRENALS: Unremarkable. KIDNEYS AND URETERS: The right kidney appears unremarkable without hydronephrosis or obstructing renal calculus evident. Postsurgical changes consistent with left nephrectomy. BLADDER: The urinary bladder appears unremarkable. REPRODUCTIVE: Uterus is present. APPENDIX: The appendix appears within normal limits of caliber. No secondary signs of acute appendicitis. BOWEL: The stomach is nondistended. The bowel loops appear within normal limits of caliber without evidence of intestinal obstruction. PERITONEUM: No significant free fluid. No definite free air. LYMPH NODES: No bulky lymphadenopathy identified. VASCULATURE: No aortic aneurysm. BONES: No acute osseous abnormality is detected. OTHER FINDINGS: None. IMPRESSION: Left nephrectomy. Hepatic steatosis. No findings consistent with acute diverticulitis.
--- NOTE | 2016-11-22 19:19 | CARD ---
APPROVED REPORT EKG Measurement Heart [id number] <Conclusion> Normal sinus rhythm Normal ECG
[2016-11-23] MEDS: Nitroglycerin 2% Ointment Foilpak UD TOP SCH ×4 (00:28→17:11)
[2016-11-23] MEDS: Enoxaparin 40 mg Syringe SC SCH (09:54)
[2016-11-23] MEDS: diltiaZEM 240 mg/24 Hours CD Cap PO SCH (09:54)
--- NOTE | 2016-11-23 13:28 | CP.PCM.DIS ---
Provider - Provider Date of Admission: 11/20/16 02:01 Attending physician: Jazzy Jacobsen MD Time Spent in preparation of Discharge (in minutes): 35 Hospital Course - Lab Results Lab Results: Most Recent Lab Values WBC 11.6 K/uL (4.8-10.8) H 11/22/16 14:05 RBC 4.83 Mil/uL (3.80-5.20) 11/22/16 14:05 Hgb 14.2 g/dL (11.0-16.0) 11/22/16 14:05 Hct 41.4 % (34.0-47.0) 11/22/16 14:05 MCV 85.6 fL (81.0-99.0) 11/22/16 14:05 MCH 29.4 pg (27.0-31.0) 11/22/16 14:05 MCHC 34.4 g/dL (33.0-37.0) 11/22/16 14:05 RDW 13.6 % (11.5-14.5) 11/22/16 14:05 Plt Count 247 K/uL (130-400) 11/22/16 14:05 MPV 9.4 fL (7.2-11.7) 11/22/16 14:05 Neut % (Auto) 60.7 % (50.0-75.0) 11/22/16 14:05 Lymph % (Auto) 30.2 % (20.0-40.0) 11/22/16 14:05 [place] % (Auto) 6.8 % (0.0-10.0) 11/22/16 14:05 Eos % (Auto) 1.9 % (0.0-4.0) 11/22/16 14:05 Baso % (Auto) 0.4 % (0.0-2.0) 11/22/16 14:05 Neut # 7.0 K/uL (1.8-7.0) 11/22/16 14:05 Lymph # 3.5 K/uL (1.0-4.3) 11/22/16 14:05 [place] # 0.8 K/uL (0.0-0.8) 11/22/16 14:05 Eos # 0.2 K/uL (0.0-0.7) 11/22/16 14:05 Baso # 0.0 K/uL (0.0-0.2) 11/22/16 14:05 PT 12.0 SECONDS (9.7-12.2) 11/20/16 01:05 INR 1.1 11/20/16 01:05 APTT 36 SECONDS (21-34) H 11/20/16 01:05 Sodium 133 mmol/L (132-148) 11/22/16 14:05 Potassium 3.5 mmol/L (3.6-5.2) L 11/22/16 14:05 Chloride 91 mmol/L (98-107) L 11/22/16 14:05 Carbon Dioxide 29 mmol/L (22-30) 11/22/16 14:05 Anion Gap 17 (10-20) 11/22/16 14:05 BUN 14 mg/dL (7-17) 11/22/16 14:05 Creatinine 1.0 MG/DL (0.7-1.2) 11/22/16 14:05 Est GFR ( Amer) > 60 11/22/16 14:05 Est GFR (Non-Af Amer) 55 11/22/16 14:05 Random Glucose 113 mg/dL (65-105) H 11/22/16 14:05 Calcium 9.3 mg/dl (8.6-10.4) 11/22/16 14:05 Total Bilirubin 0.4 mg/dL (0.2-1.3) 11/20/16 01:02 AST 34 U/L (14-36) 11/20/16 01:02 ALT 42 U/L (9-52) 11/20/16 01:02 Alkaline Phosphatase 93 U/L (38-126) 11/20/16 01:02 Total Creatine Kinase 56 U/L (30-135) 11/21/16 01:19 CK-MB (Mass) 0.54 ng/mL (0.0-3.38) 11/21/16 01:19 Troponin I, Quant < 0.0120 ng/mL (0.00-0.120) 11/21/16 01:19 Total Protein 8.4 g/dL (6.3-8.3) H 11/20/16 01:02 Albumin 4.9 g/dL (3.5-5.0) 11/20/16 01:02 Globulin 3.4 gm/dL (2.2-3.9) 11/20/16 01:02 Albumin/Globulin Ratio 1.4 (1.0-2.1) 11/20/16 01:02 - Hospital Course Hospital Course: PT ADMITTED WITH CP LEFT SIDE RADIATING TO LEFR A/W DIAPHORESIS. ALL PRELIMANARY CARDIAC W/U IN ER ARE NEGATIVE PAST HIST. HAS HAD MULTIPLE ADMISSION FOR CP . ALL W/U NEG. EGD IN 2014 , GASTRITIS AND H. HERNIA LEFT NEPHRECTOMY TNI WERE NEG EKG NO ACUTE CHANGE NEXT DAY PT HAD LLQ PAIN CT ABD NEG FOR DIVERTICULITIS PT HAD ECHO 10/24 AND IV KEXISCAN. BOTH NEG PLAN D/C HOME WITH HOME MEDS Discharge Plan - Follow Up Plan Condition: STABLE Disposition: HOME/ ROUTINE
[2016-11-23 16:01] VITALS: BP 120/75; PULSE 82; RESP 20; TEMP 98.2; O2SAT 95
[2016-11-23] MEDS ORDERED: Potassium Chloride 20 mEq ER Tab PO SCH (16:30)
== END 2016-11-23 18:00 | disposition home or self-care (01) | DRG 310 ==
LOC: C.ER 00:30 → C.6T 02:01
PROVIDERS: ADMIT Internal Medicine Cardiovascular Disease; ATTEND Internal Medicine Cardiovascular Disease
DX: I47.1 Supraventricular tachycardia (principal); I12.9 Hypertensive chronic kidney disease with stage 1 through stage 4 chronic kidney disease, or unspecified chronic kidney disease; K21.9 Gastro-esophageal reflux disease without esophagitis; N18.9 Chronic kidney disease, unspecified; M81.0 Age-related osteoporosis without current pathological fracture; G47.00 Insomnia, unspecified

== ENCOUNTER 2017-05-26 10:34 | Emergency (ER) | payer MEDICARE ==
[2017-05-26 10:34] VITALS: BMI 36.3
--- NOTE | 2017-05-26 11:28 | C.PDOC ---
History Of Present Illness 71 year old female presents to the ED for evaluation of a dry, itchy sensation in her throat and a pressure-like headache which began after she took Robitussin for productive cough which she had for 2 days. Patient admits to feeling this after several doses, each time with Robitussi. notes she usually experiences these symptoms when she takes Robitussin. Patient denies shortness of breath, sensation of throat closing up, itchiness, rash tongue/lip swelling. Time Seen by Provider: 05/26/17 10:57 Chief Complaint (Nursing): Allergic Reaction History Per: Patient History/Exam Limitations: no limitations Onset/Duration Of Symptoms: Days (2) Current Symptoms Are (Timing): Still Present Possible Cause: Medication Associated Symptoms: denies: Skin Rash, Trouble Swallowing Additional History Per: Patient Past Medical History Reviewed: Historical Data, Nursing Documentation, Vital Signs Vital Signs: Last Vital Signs Temp 97.8 F 05/26/17 12:07 Pulse 70 05/26/17 12:07 Resp 20 05/26/17 12:07 BP 138/82 05/26/17 12:07 Pulse Ox 97 05/26/17 13:28 - Medical History PMH: HTN, Osteoporosis, Chronic Kidney Disease (SEE COMMENT) Surgical History: Endoscopy, Tonsillectomy - [facility] Procedures ENDO RECTUM POLYPECTOMY (08/29/14) ESOPHAGOGASTRODUODENOSCOPY [EGD] W/CLOSED BIOPSY (10/03/14) PHARYNGEAL BIOPSY (06/10/14) Family History: States: No Known Family Hx - Social History Hx Tobacco Use: No Hx Alcohol Use: No Hx Substance Use: No - Immunization History Hx Tetanus Toxoid Vaccination: Yes Hx Influenza Vaccination: Yes (02/2016) Hx Pneumococcal Vaccination: Yes Review Of Systems Except As Marked, All Systems Reviewed And Found Negative. Constitutional: Negative for: Fever, Chills ENT: Positive for: Other (dry, itchy sensation in throat ) Respiratory: Positive for: Cough, Sputum Skin: Negative for: Rash Neurological: Positive for: Headache Physical Exam - Physical Exam Appears: Well, Non-toxic, No Acute Distress Skin: Normal Color, Warm, Dry, No Rash Eye(s): bilateral: Normal Inspection Ear(s): Bilateral: Normal Nose: Normal, No Discharge Oral Mucosa: Moist, No Drooling Tongue: Normal Appearing, No Swelling Lips: Normal Appearing, No Swelling Throat: Normal, No Erythema, No Exudate, No Drooling Neck: Supple Chest: Symmetrical, No Deformity, No Tenderness Cardiovascular: Rhythm Regular Respiratory: Normal Breath Sounds, No Rales, No Rhonchi, No Stridor, No Wheezing Extremity: Normal ROM Neurological/Psych: Oriented x3 Gait: Steady ED Course And Treatment O2 Sat by Pulse Oximetry: 97 (on RA) Pulse Ox Interpretation: Normal Progress Note: Patient given PO prednisone, benadryl (for allergic reaction) and tylenol (for mild headache). Reevaluation Time: 12:05 Reassessment Condition: Improved (On reassessment, patient states she feels better. She is well appearing, in no distress, with normal vitals. Rxs given for prednisone, benadryl. Patient instructed to not take robitussin DM again, and to follow up with PMD in 1-2 days. She understands she should return to ED if symptoms worsen.) Disposition Counseled Patient/Family Regarding: Diagnosis, Need For Followup, Rx Given - Disposition Referrals: Jan Owens Jr., MD [Medical Doctor] - Disposition: HOME/ ROUTINE Disposition Time: 12:05 Condition: STABLE Additional Instructions: SEGUIMIENTO CON CUBA MDICO EN 1-2 ESQUIVEL DEJE DE USAR INMEDIATAMENTE EL JARABE PARA TOS REGRESE AL AMBROSE DE EMERGENCIA SI LOS SNTOMAS EMPEORAN Prescriptions: DiphenhydrAMINE [Benadryl] 25 mg PO Q6 PRN #20 cap PRN Reason: Itching / Pruritus predniSONE [predniSONE Tab] 40 mg PO DAILY #6 tab Instructions: Allergies (ED) Forms: Vided[employer] (Sinhala) Print Language: POLISH - Clinical Impression Clinical Impression: Allergic reaction - Scribe Statement The provider has reviewed the documentation as recorded by the Scribe (Ember Aguilar) Provider Attestation: All medical record entries made by the Scribe were at my direction and personally dictated by me. I have reviewed the chart and agree that the record accurately reflects my personal performance of the history, physical exam, medical decision making, and the department course for this patient. I have also personally directed, reviewed, and agree with the discharge instructions and disposition.
[2017-05-26 12:09] VITALS: BP 138/82; PULSE 70; RESP 20; TEMP 97.8
[2017-05-26 13:25] VITALS: O2SAT 97
== END 2017-05-26 12:09 | disposition home or self-care (01) ==
LOC: C.ER 10:34
DX: T78.40XA Allergy, unspecified, initial encounter (principal); X58.XXXA Exposure to other specified factors, initial encounter; I10 Essential (primary) hypertension

== ENCOUNTER 2018-06-05 10:44 | Emergency (ER) | payer MEDICARE ==
[2018-06-05 10:45] VITALS: BMI 36.3
[2018-06-05 11:05] VITALS: BP 139/84; PULSE 100; RESP 18; TEMP 97.9; O2SAT 95
--- NOTE | 2018-06-05 12:37 | C.PDOC ---
History Of Present Illness 73 year old female presents to the ED for evaluation of left knee pain for 2 days. Admits to taking Tylenol once yesterday with no improvement. Notes she applied a heating pad to the area, which made her current symptoms worse. Denies fever, trauma, falls, numbness, tingling, and any other associated symptoms. Time Seen by Provider: 06/05/18 12:10 Chief Complaint (Nursing): Lower Extremity Problem/Injury History Per: Patient History/Exam Limitations: no limitations Onset/Duration Of Symptoms: Days Current Symptoms Are (Timing): Still Present Past Medical History Reviewed: Historical Data, Nursing Documentation, Vital Signs Vital Signs: Last Vital Signs Temp 97.9 F 06/05/18 10:58 Pulse 100 H 06/05/18 10:58 Resp 18 06/05/18 10:58 BP 139/84 06/05/18 10:58 Pulse Ox 95 06/05/18 10:58 - Medical History PMH: HTN, Osteoporosis, Chronic Kidney Disease (SEE COMMENT) Denies: Hyperthyroidism Surgical History: [facility]oscopy, [facility] Procedures ENDO RECTUM POLYPECTOMY (08/29/14) ESOPHAGOGASTRODUODENOSCOPY [EGD] W/CLOSED BIOPSY (10/03/14) PHARYNGEAL BIOPSY (06/10/14) Family History: States: Unknown Family Hx - Social History Hx Tobacco Use: No Hx Alcohol Use: No Hx Substance Use: No - Immunization History Hx Tetanus Toxoid Vaccination: Yes Hx Influenza Vaccination: Yes (02/2016) Hx Pneumococcal Vaccination: Yes Review Of Systems Except As Marked, All Systems Reviewed And Found Negative. Constitutional: Negative for: Fever, Weight loss (recent weight gain.), Other (trauma. falls.) Musculoskeletal: Positive for: Leg Pain (left knee pain. ) Neurological: Negative for: Weakness, Numbness, Incoordination Physical Exam - Physical Exam Appears: Well, Non-toxic, No Acute Distress, Other (Obese female.) Skin: Normal Color, Warm, Diaphoretic Head: Atraumatic, Normacephalic Eye(s): bilateral: PERRL Oral Mucosa: Moist Neck: Normal ROM, Supple Respiratory: Other (no acute respiratory distress.) Extremity: Normal ROM (of the left lower extremity with no pain.), Tenderness (mild bilateral collateral ligament tenderness.), Capillary Refill (less than 2 seconds.), No Deformity, No Swelling Neurological/Psych: Oriented x3, Normal Speech, Normal Cognition, Normal Motor, Normal Sensation, Normal Reflexes ED Course And Treatment O2 Sat by Pulse Oximetry: 95 (RA) Pulse Ox Interpretation: Normal - Other Rad L knee X-Ray: Interpreted by Me (? small effusion, no fx/disloc.) Medical Decision Making Medical Decision Making: mild L knee sprain, no injury ? related to obesity ice/nsaids educated Plan: -LT Knee xray. Motrin. Progress/Update: Ice was applied to the area. X-ray showed questionable small left knee effusion. Patient stable for discharge home. Disposition Doctor Will See Patient In The: Office Counseled Patient/Family Regarding: Studies Performed, Diagnosis - Disposition Referrals: Donald Carbajal MD [Medical Doctor] - Disposition: HOME/ ROUTINE Disposition Time: 12:37 Condition: GOOD Additional Instructions: [place] 1/2 hora por hora, nada caliente ibuprofeno 400-600 mg cada 6 horas humberto necessario Sigue [facility] con Dr. Aviva Mcdonald para hacer anthony o' presenta en la [facility] (gratis!) [place] normal. Instructions: Knee Sprain (DC) Forms: oBaz (Amharic) Print Language: SAMOAN - Clinical Impression Clinical Impression: Knee pain, left - Scribe Statement The provider has reviewed the documentation as recorded by the Scribe (Liberty Islas) Provider Attestation: All medical record entries made by the Scribe were at my direction and personally dictated by me. I have reviewed the chart and agree that the record accurately reflects my personal performance of the history, physical exam, medical decision making, and the department course for this patient. I have also personally directed, reviewed, and agree with the discharge instructions and disposition.
--- NOTE | 2018-06-05 14:32 | RAD ---
Date of service: 06/05/2018 PROCEDURE: Left Knee Radiographs. HISTORY: Pain. COMPARISON: None. FINDINGS: BONES: No fracture appreciated Posterior patellar subcortical tiny cystic change. Trace spurring: Patella and tibial spines. JOINTS: Minimal-mild osteoarthrosis-for patient's age JOINT EFFUSION: Doubted OTHER FINDINGS: None. IMPRESSION: No fracture or suspect lytic lesion. Posterior patellar tiny arthro pathic cystic changes suggested. Minimal mild osteoarthrosis tibial spines
== END 2018-06-05 12:50 | disposition home or self-care (01) ==
LOC: C.ER 10:44
DX: M25.562 Pain in left knee (principal)